=== PATIENT | male | born 1925 | race Caucasian/White ===

== ENCOUNTER 2016-11-25 06:05 | Inpatient (IN) ==
--- NOTE | 2016-11-25 06:21 | Emergency Department Report ---
Weakness HPI - General Chief complaint: Medical Emergency Stated complaint: Weakness/SOB Time Seen by Provider: 11/25/16 06:21 Source: patient, EMS Mode of arrival: EMS Limitations: no limitations - History of Present Illness HPI Narrative: Patient is a 89-year-old male presents to the ER for evaluation of weakness. 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 Patient woke up this morning too weak to get out of bed, did urinate in bed because he was unable to get up. Patient was seen by primary medical physician 3 days ago started on Bactrim for cellulitis of his right lower extremity, also started on Lasix with potassium. Patient does not normally use oxygen was found to be satting 88% on room air, was placed on 3 L by nasal cannula brought to the ER for evaluation on arrival patient is alert and oriented sinus tach MD Complaint: generalized weakness Onset (ago): day(s) Duration: constant - Related Data Home Medications Medication Instructions Recorded Confirmed Nitroglycerin 0.4 mg SL PRN #0 10/13/09 11/25/16 Aspirin 325 mg PO DAILY #0 10/14/09 11/25/16 Clopidogrel Bisulfate [Plavix] 75 mg PO DAILY #0 10/14/09 11/25/16 Omeprazole 20 mg PO ACB #0 cap 06/11/13 11/25/16 Famotidine 1 tab PO DAILY #0 tab 06/26/15 11/25/16 Mapap Regular Strength 325 mg See Label Instructions PO TID PRN 08/23/16 tablet tab cholecalciferol (vitamin D3) 2,000 2,000 unit PO DAILY cap 08/23/16 11/25/16 unit capsule clobetasol 0.05 % topical cream 1 applicatio TOP .COMPLEX 08/23/16 11/25/16 niacin 500 mg tablet 500 mg PO DAILY tab 08/23/16 11/25/16 omega-3 fatty acids 1,250 mg 1,250 mg PO DAILY cap 08/23/16 11/25/16 capsule simvastatin 80 mg tablet 40 mg PO HS #0 tab 08/23/16 11/25/16 vitamins A,C,T-abep-zxqoow 14,320 1 cap PO DAILY cap 08/23/16 11/25/16 unit-226 mg-200 unit capsule Furosemide [Lasix] 20 mg PO DAILY 11/25/16 11/25/16 Previous Rx's Medication Instructions Recorded Tamsulosin HCl 0.4 mg PO HS 30 Days #0 cap 07/02/15 clotrimazole-betamethasone 1 1 applicatio TOP BID #15 g 11/23/16 %-0.05 % topical cream potassium chloride ER 10 mEq 10 meq PO BID #60 tab 11/23/16 tablet,extended release sulfamethoxazole 800 1 tab PO BID #14 tab 11/23/16 mg-trimethoprim 160 mg tablet Allergies Allergy/AdvReac Type Severity Reaction Status Date / Time adhesive tape Allergy Intermediate BLISTERING, Verified 11/25/16 07:07 RASH cephalexin [From Keflex] Allergy Intermediate puritic Verified 11/25/16 07:07 rash Penicillins Allergy Intermediate RASH Verified 11/25/16 07:07 spironolactone Allergy Intermediate MEMORY Verified 11/25/16 07:07 IMPAIRMENT, FEELS CRAZY ciprofloxacin AdvReac Severe NAUSEA & Verified 11/25/16 07:07 VOMITING ibuprofen AdvReac Severe ULCER Verified 11/25/16 07:07 Review of Systems Constitutional: Reports: weakness (generalized nonspecific). Denies: fever, chills ENT: Denies: throat pain, dental pain Cardiovascular: Denies: chest pain, palpitations Respiratory: Reports: cough, dyspnea, wheezes Gastrointestinal: Denies: abdominal pain, nausea, vomiting Genitourinary: Denies: urgency, dysuria, frequency Musculoskeletal: Reports: as per HPI. Denies: back pain, joint swelling Neurological: Denies: headache, numbness, paresthesias Psychiatric: Denies: anxiety Endocrine: Reports: fatigue PFSH Patient Stated Medical History Macular Degeneration Yes Coronary Artery Disease Yes Hypertension Yes Myocardial Infarction Yes: STENT PLACEMENT Chronic Obstructive Pulmonary Yes Disease (COPD) Other Yes: URETHRAL STENOSIS [facility] Medical History Hx of malignant neoplasm of prostate (Acute Medical) 2004 Hx of myocardial infarction (Acute Medical) CAD (coronary artery disease) (Chronic Medical) COPD (chronic obstructive pulmonary disease) (Chronic Medical) Dyslipidemia (Chronic Medical) HTN (hypertension) (Chronic Medical) Macular degeneration (Chronic Medical) Urethral stenosis (Chronic Medical) Family History: Family History Father , at age 77 Myocardial infarction Mother , at age 49 MVA (motor vehicle accident) Sister , at age 83 Lung cancer - Social History Smoking status: Former smoker Substance use type: does not use Alcohol intake frequency: does not drink Physical Exam - Limitations Limitations: no limitations - General General appearance: alert - ENT ENT exam: Present: normal exam, normal oropharynx, mucous membranes dry - Neck Neck exam: Present: full ROM - Chest Chest inspection: Present: symmetric chest wall rise. Absent: tenderness - Respiratory Respiratory exam: Present: normal lung sounds bilaterally, wheezes. Absent: respiratory distress, stridor - Cardiovascular Cardiovascular exam: Present: regular rate, tachycardia, normal heart sounds - Abdominal Exam Abdominal exam: Present: soft. Absent: distention, tenderness - Extremities Exam Extremities exam: Present: other (patient has swelling with redness of the right lower extremity) - Back Exam Back exam: Present: full ROM. Absent: tenderness, CVA tenderness (R), CVA tenderness (L) - Skin Skin exam: Present: warm, dry, intact - Neurological Exam Neurological exam: Present: alert, oriented X3 - Psychiatric Psychiatric exam: Present: normal affect, normal mood Course Vital Signs Temperature 98.5 F 11/25/16 06:05 Pulse Rate 115 H 11/25/16 06:05 Respiratory Rate 24 11/25/16 06:05 Pulse Oximetry 90 11/25/16 06:05 Temperature 98.5 F 11/25/16 06:05 Pulse Rate 98 11/25/16 08:15 Respiratory Rate 28 H 11/25/16 08:15 Blood Pressure 109/55 11/25/16 08:04 Pulse Oximetry 93 11/25/16 08:15 Weakness - MDM Narrative Medical decision making narrative: Patient with elevated white count, elevated lactate, neutrophilia signs of urinary tract infection and signs of cellulitis. Patient blood pressure did drop to 89/54, fluids started, patient was started on Linezolid for antibiotic coverage due to patient's ALLERGY list. Discussed with Dr. Felipe, will admit to the CCU for further evaluation and treatment - Differential Diagnosis Differential diagnosis: Likely: acute myocardial infarction, anemia, hypoglycemia, sepsis, dehydration - Medical Records Attestation: I reviewed the patient's medical records. - Lab Data Attestation: I reviewed the patient's lab results. Result diagrams: 11/25/16 07:05 11/25/16 07:05 Lab Results 11/25/16 11/25/16 11/25/16 Range/Units 07:05 07:05 07:06 WBC 14.2 H (4.5-11.0) T/MM3 RBC 4.39 L (4.50-5.90) M/MM3 Hgb 12.2 L (13.5-17.5) GM/DL Hct 37.9 L (41-53) % MCV 86.3 (80-100) UM3 MCH 27.8 (26-34) UUG MCHC 32.2 (31-37) GM/DL RDW Std Deviation 49.6 (36.9-50.2) FL Plt Count 242 (130-400) T/MM3 MPV 10.0 (9.4-12.4) UM3 Immature Gran % (Auto) Not performed Neut % (Auto) Not performed Lymph % (Auto) Not performed [place] % (Auto) Not performed Eos % (Auto) Not performed Baso % (Auto) Not performed Neut # Not performed Lymph # Not performed [place] # Not performed Eos # Not performed Baso # Not performed Abs Immat Gran (auto) Not performed Neutrophils % (Manual) 98.0 H (33-66) % Band Neutrophils % 1.0 (0-6) % Lymphocytes % (Manual) 1.0 L (23-45) % Neutrophils # (Manual) 13.9 H (1.8-7.7) T/MM3 Band Neutrophils # 0.1 T/MM3 Lymphocytes # (Manual) 0.1 L (1-4.8) T/MM3 RBC Morph Comment Normal Turbidity < 20 (0-20) Sodium 141 (134-144) MEQ/L Potassium 4.1 (3.6-5) MEQ/L Chloride 106 (98-107) MEQ/L Carbon Dioxide 25 (22-30) MEQ/L Anion Gap 10 (5-15) MEQ/L BUN 36.0 H (9-20) MG/DL Creatinine 1.6 H (0.8-1.5) MG/DL GFR Calculation 41 BUN/Creatinine Ratio 23 (6-26) RATIO Glucose 106 (75-110) MG/DL Calculated Osmolality 279 (261-280) MOSM/KG Calcium 9.0 (8.4-10.2) MG/DL Magnesium 1.8 (1.6-2.3) MG/DL Total Bilirubin 0.70 (0.20-1.30) MG/DL Icterus Index < 2 (0-7) AST 28 (17-59) U/L ALT 27 (21-72) U/L Alkaline Phosphatase 72 (38-126) U/L Troponin I 0.059 (0-0.12) ng/ml B-Natriuretic Peptide 2690 H (0-175) pg/mL Total Protein 7.1 (6.3-8.2) G/DL Albumin 3.9 (3.5-5.0) G/DL Globulin 3.2 (2.4-3.6) G/DL Albumin/Globulin Ratio 1.2 (1.1-2.2) RATIO Plasma Lactate 2.3 H (0.6-2.2) MMOL/L Procalcitonin 3.33 H* NG/ML Specimen Hemolysis < 15 (0-25) Ur Collection Type Urine Color (YELLOW) Urine Clarity Urine pH (5.0-8.0) Ur Specific [place] (1.015-1.025) Urine Protein (NEGATIVE) Urine Glucose (UA) (NEGATIVE) Urine Ketones (NEGATIVE) Urine Occult Blood (NEGATIVE) Urine Nitrate (NEGATIVE) Urine Bilirubin (NEGATIVE) Urine Urobilinogen (NORMAL) EU/DL Ur Leukocyte Esterase (NEGATIVE) Urine RBC (0-3) /HPF Urine WBC (0-5) /HPF Ur Squamous Epith Cells Urine Bacteria (NEGATIVE) Urine Mucus Ur Culture Indicated? 11/25/16 Range/Units 08:02 WBC (4.5-11.0) T/MM3 RBC (4.50-5.90) M/MM3 Hgb (13.5-17.5) GM/DL Hct (41-53) % MCV (80-100) UM3 MCH (26-34) UUG MCHC (31-37) GM/DL RDW Std Deviation (36.9-50.2) FL Plt Count (130-400) T/MM3 MPV (9.4-12.4) UM3 Immature Gran % (Auto) Neut % (Auto) Lymph % (Auto) [place] % (Auto) Eos % (Auto) Baso % (Auto) Neut # Lymph # [place] # Eos # Baso # Abs Immat Gran (auto) Neutrophils % (Manual) (33-66) % Band Neutrophils % (0-6) % Lymphocytes % (Manual) (23-45) % Neutrophils # (Manual) (1.8-7.7) T/MM3 Band Neutrophils # T/MM3 Lymphocytes # (Manual) (1-4.8) T/MM3 RBC Morph Comment Turbidity (0-20) Sodium (134-144) MEQ/L Potassium (3.6-5) MEQ/L Chloride (98-107) MEQ/L Carbon Dioxide (22-30) MEQ/L Anion Gap (5-15) MEQ/L BUN (9-20) MG/DL Creatinine (0.8-1.5) MG/DL GFR Calculation BUN/Creatinine Ratio (6-26) RATIO Glucose (75-110) MG/DL Calculated Osmolality (261-280) MOSM/KG Calcium (8.4-10.2) MG/DL Magnesium (1.6-2.3) MG/DL Total Bilirubin (0.20-1.30) MG/DL Icterus Index (0-7) AST (17-59) U/L ALT (21-72) U/L Alkaline Phosphatase (38-126) U/L Troponin I (0-0.12) ng/ml B-Natriuretic Peptide (0-175) pg/mL Total Protein (6.3-8.2) G/DL Albumin (3.5-5.0) G/DL Globulin (2.4-3.6) G/DL Albumin/Globulin Ratio (1.1-2.2) RATIO Plasma Lactate (0.6-2.2) MMOL/L Procalcitonin NG/ML Specimen Hemolysis (0-25) Ur Collection Type Urine, clean catch Urine Color Yellow (YELLOW) Urine Clarity Cloudy Urine pH 5.0 (5.0-8.0) Ur Specific [place] >=1.030 H (1.015-1.025) Urine Protein Trace A (NEGATIVE) Urine Glucose (UA) Negative (NEGATIVE) Urine Ketones Negative (NEGATIVE) Urine Occult Blood Trace-intact (NEGATIVE) Urine Nitrate Negative (NEGATIVE) Urine Bilirubin Negative (NEGATIVE) Urine Urobilinogen 0.2 (NORMAL) EU/DL Ur Leukocyte Esterase 1+ A (NEGATIVE) Urine RBC 1-3 (0-3) /HPF Urine WBC 50-200 H (0-5) /HPF Ur Squamous Epith Cells 5-10 Urine Bacteria 2+ H (NEGATIVE) Urine Mucus Present Ur Culture Indicated? Cult reflexed &setup - Radiology Data Attestation: I reviewed the patient's radiology results. Chest x-ray: No acute cardiopulmonary findings Ultrasound right lower extremity: No sign of DVT - EKG Data EKG #1 EKG attestation: Yes: I reviewed and interpreted this EKG. EKG shows normal: sinus rhythm Rate: normal Rhythm: NSR [place]/QRS: normal Ectopy: PVC Interpretation: no acute changes Disposition Clinical Impression: Sepsis Qualifiers: Sepsis type: sepsis due to unspecified organism Qualified Code(s): A41.9 - Sepsis, unspecified organism Cellulitis Qualifiers: Site of cellulitis: extremity Site of cellulitis of extremity: lower extremity Laterality: right Qualified Code(s): L03.115 - Cellulitis of right lower limb UTI (urinary tract infection) Qualifiers: Urinary tract infection type: acute cystitis Hematuria presence: without hematuria Qualified Code(s): N30.00 - Acute cystitis without hematuria Disposition: 02 To [facility] [place] Acute Care Condition: Stable Prescriptions: No Action Aspirin 325 mg PO DAILY #0 Tamsulosin HCl 0.4 mg PO HS 30 Days #0 cap Nitroglycerin 0.4 mg SL PRN #0 Clopidogrel Bisulfate [Plavix] 75 mg PO DAILY #0 Omeprazole 20 mg PO ACB #0 cap Famotidine 1 tab PO DAILY #0 tab Furosemide [Lasix] 20 mg PO DAILY sulfamethoxazole 800 mg-trimethoprim 160 mg tablet 1 tab PO BID #14 tab potassium chloride ER 10 mEq tablet,extended release 10 meq PO BID #60 tab clotrimazole-betamethasone 1 %-0.05 % topical cream 1 applicatio TOP BID #15 g - Seen By: physician
[2016-11-25] MEDS ORDERED: ALBUTEROL 2.5mg/3ml (0.083%) NEB AEROSOL ONE (06:25)
[2016-11-25] MEDS ORDERED: LINEZOLID PREMIX 600 MG/300 ML BAG IV SCH (06:45)
--- OUTSIDE RECORDS SUMMARY | 2016-11-25 07:08 | External Medical Summary | Summary of Care ---
:1925 Author Name Jeff Holcomb M.D. 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 Refills: 0 Started 03-Apr-2015 ActiveTylenol 325 MG Oral Tablet TAKE 1 TO 2 TABLETS EVERY 4 HOURS NEEDED Refills: 0 Started 03-Apr-2015 ActiveVitamin D3 2000 UNIT Oral Tablet Take 1 tablet daily Refills: 0 Started 03-Apr-2015 ActiveTemovate 0.05 % External Cream APPLY SPARINGLY TO AFFECTED AREA(S) 3 TIMES A DAY Refills: 0 Started 03-Apr-2015 ActiveSimvastatin 80 MG Oral Tablet TAKE 1 TABLET DAILY AT BEDTIME. Refills: 0 Started 03-Apr-2015 ActivePlavix 75 MG Oral Tablet TAKE 1 TABLET DAILY. Refills: 0 Started 03-Apr-2015 ActiveNitrostat 0.4 MG Sublingual Tablet Sublingual DISSOLVE 1 TABLET UNDER THE TONGUE NEEDED FOR CHEST PAIN. Refills: 0 Started 03-Apr-2015 ActivePepcid 20 MG Oral Tablet TAKE 1 TABLET DAILY AT BEDTIME. Refills: 0 Started 03-Apr-2015 ActiveFish Oil 1000 MG Oral Capsule TAKE 1 CAPSULE DAILY. Refills: 0 Started 03-Apr-2015 ActiveAspirin 81 MG Oral Tablet TAKE 1 TABLET DAILY. Refills: 0 Started 03-Apr-2015 ActiveNiacin 250 MG Oral Tablet TAKE 1 TABLET DAILY DIRECTED. Refills: 0 Started 03-Apr-2015 Active Allergies and Adverse Reactions Name Dates Details Keflex Status: Active Penicillins Status: Active Past Medical History Name Dates Details History of bladder cancer (V10.51, Z85.51) Status: Resolved History of CAD (coronary artery disease) (414.00, I25.10) Status: Resolved History of Dyslipidemia (272.4, E78.5) Status: Resolved History of esophageal reflux (V12.79, Z87.19) Status: Resolved History of hypertension (V12.59, Z86.79) Status: Resolved History of malignant neoplasm of bladder (V10.51, Z85.51) Status: Resolved History of malignant neoplasm of prostate (V10.46, Z85.46) Status: Resolved History of myocardial infarction (412, I25.2) Status: Resolved History of Postoperative urethral stricture (598.2) Status: Resolved History of Pyuria (791.9, N39.0) Status: Resolved Procedures Procedure Dates Details History of Tonsillectomy History of Ankle Surgery History of Cath Placement Of Stent 1 History Of Prior Surgery Procedures not documented Immunization Name Dates Details Immunizations not documented Family History natural son Name Dates Details Family history of diabetes mellitus (V18.0, Z83.3) Status: Active Father Name Dates Details Family history of myocardial infarction (V17.3, Z82.49) Status: Active Sister Name Dates Details Family history of lung cancer (V16.1, Z80.1) Status: Active Social History Name Dates Details Smoking StatusFormer smoker Vital Signs Date Test Result Details 26-Jun-2015 14:19 Height 71 in Status: Weight 212 lb Status: Body Mass Index Calculated 29.57 kg/m2 Status: Body Surface Area Calculated 2.16 m2 Status: 26-Jun-2015 14:17 BP Systolic 107 mm[Hg] Status: BP Diastolic 79 mm[Hg] Status: Heart Rate 83 /min Status: Results Date Description Value Details Results not documented Plan of Care Planned Observations Name Dates Details Planned Goals not documented Goal Planned Encounters Appointment; Provider: Jeff Holcomb On 02-Jul-2016 10:15 Appointment; Provider: Jeff Holcomb On 09:00 Appointment; Provider: Jeff Holcomb On 01-Jul-2015 12:00 Instructions Instructions not documented Encounters Appointment; Jeff Holcomb On 26-Jun-2015 Encounter Diagnosis: Problem not documented 11:15
--- OUTSIDE RECORDS SUMMARY | 2016-11-25 07:08 | External Medical Summary | Summary of Care ---
:1925 Author Name Jeff Holcomb M.D. Address [address] [place] [address] [place] [address] Care Team Providers Name Role Phone Zhang Dale, Jeff Unavailable Unavailable Johnathan Andrews Unavailable Unavailable Unavailable Unavailable Functional Status Functional Status Health Issues Name Dates Details Functional status health issues are not documented Status: Cognitive Status Health Issues Name Dates Details Cognitive status health issues are not documented Status: Problems Name Dates Details Hematuria (599.70, R31.9) Status: Active Encounter for radiotherapy (V58.0, Z51.0) Status: Active Gross hematuria (599.71, R31.0) Status: Active 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 Refills: 0 Start 03-Apr-2015 Active Tylenol 325 MG Oral Tablet TAKE 1 TO 2 TABLETS EVERY 4 HOURS NEEDED Refills: 0 Start 03-Apr-2015 Active Vitamin D3 2000 UNIT Oral Tablet Take 1 tablet daily Refills: 0 Start 03-Apr-2015 Active Temovate 0.05 % External Cream APPLY SPARINGLY TO AFFECTED AREA(S) 3 TIMES A DAY Refills: 0 Start 03-Apr-2015 Active Simvastatin 80 MG Oral Tablet TAKE 1 TABLET DAILY AT BEDTIME. Refills: 0 Start 03-Apr-2015 Active Plavix 75 MG Oral Tablet TAKE 1 TABLET DAILY. Refills: 0 Start 03-Apr-2015 Active Nitrostat 0.4 MG Sublingual Tablet Sublingual DISSOLVE 1 TABLET UNDER THE TONGUE NEEDED FOR CHEST PAIN. Refills: 0 Start 03-Apr-2015 Active Pepcid 20 MG Oral Tablet TAKE 1 TABLET DAILY AT BEDTIME. Refills: 0 Start 03-Apr-2015 Active Fish Oil 1000 MG Oral Capsule TAKE 1 CAPSULE DAILY. Refills: 0 Start 03-Apr-2015 Active Aspirin 81 MG TABS TAKE 1 TABLET DAILY. Refills: 0 Start 03-Apr-2015 Active Niacin 250 MG Oral Tablet TAKE 1 TABLET DAILY DIRECTED. Refills: 0 Start 03-Apr-2015 Active Clotrimazole-Betamethasone 1-0.05 % External Cream APPLY SPARINGLY TO THE AFFECTED AREA(S) TWICE DAILY. Quantity: 1 Refills: 0 Zhang M.D., Jeff Start 30-Jun-2016 Active 15 GM Tube Allergies and Adverse Reactions Name Dates Details Keflex (Allergy) Status: Active Penicillins (Allergy) Status: Active Past Medical History Name Dates [...] Of Stent 1 History Of Prior Surgery CYTOLOGY - URINE [id number] Ordered: 30-Jun-2016 URINE CULTURE [id number] Ordered: 30-Jun-2016 Immunization Name Dates Details Immunizations not documented Family History natural son Name Dates Details Family history of diabetes mellitus (V18.0, Z83.3) Status: Active Father Name Dates Details Family history of myocardial infarction (V17.3, Z82.49) Status: Active Sister Name Dates Details Family history of lung cancer (V16.1, Z80.1) Status: Active Social History Name Dates Details - Status: Smoking Status Name Dates Details Former smoker Vital Signs Date Test Result Details No Known Vitals to report Results Date Description Value Details Results not documented Plan of Care Name Dates Details Planned Observations Planned Goals not documented Planned Encounters Appointment; Provider: Jeff Holcomb M.D. On 06-Jul-2017 11:00 Appointment; Provider: Mathieu Levine M.D. On 06-Jul-2016 14:00 Interventions Provided Medication ChangesClotrimazole-Betamethasone 1-0.05 % External Cream - StartLabs /Procedures/ImagingCYTOLOGY - URINE [id number]; To be Done: 30 Jun 2016URINE CULTURE [id number]; To be Done: 30 Jun 2016 Instructions Name Dates Details Instructions not documented Encounters Appointment; Jeff Holcomb M.D. On 26-Jun-2015 Encounter Diagnosis: Problem not documented 11:15
--- OUTSIDE RECORDS SUMMARY | 2016-11-25 07:08 | External Medical Summary | Summary of Care ---
:1925 Author Name Jeff Holcomb M.D. 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 History of bladder cancer (V10.51, Z85.51) Status: Active History of prostate cancer (V10.46, Z85.46) Status: Active Medications Name Dates Details Omeprazole [...] cancer (V10.51, Z85.51) Status: Resolved History of Bladder cancer screening (V76.3, Z12.6) Status: Resolved History of CAD (coronary artery [...] Of Stent 1 History Of Prior Surgery URINE CULTURE [id number] Ordered:26-Jun-2015 Immunization Name Dates Details Immunizations not documented [...] Planned Encounters Appointment; Provider: Jeff Holcomb On 09:00 Instructions Instructions not documented Encounters Appointment; Jeff Holcomb On 26-Jun-2015 Encounter Diagnosis: Problem not documented 11:15
--- OUTSIDE RECORDS SUMMARY | 2016-11-25 07:08 | External Medical Summary | Summary of Care ---
:1925 Author Name Jeff Holcomb M.D. Address [address] [place] [address] [place] [address] Care Team Providers Name Role Phone Zhang [...] AREA(S) TWICE DAILY. Quantity: 1 Refills: 0 Cho M.D., Jeff Start 30-Jun-2016 Active 15 GM [...] 1 History Of Prior Surgery URINE CULTURE [id number] Ordered: 30-Jun-2016 Immunization Name Dates Details Immunizations [...] ChangesClotrimazole-Betamethasone 1-0.05 % External Cream - StartLabs /Procedures/ImagingURINE CULTURE [id number]; To be Done: 30 Jun 2016 Instructions Name Dates Details Instructions not documented Encounters Appointment; Jeff Holcomb M.D. On 26-Jun-2015 Encounter Diagnosis: Problem not documented 11:15
--- OUTSIDE RECORDS SUMMARY | 2016-11-25 07:08 | External Medical Summary | Summary of Care ---
:1925 Author Name Jeff Holcomb M.D. 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
--- OUTSIDE RECORDS SUMMARY | 2016-11-25 07:08 | External Medical Summary | Summary of Care ---
:1925 Author Name Jeff Holcomb M.D. 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 Quantity: 1 Refills: 0 Jeff Holcomb M.D. Start 30-Jun-2016 Active 15 GM Tube Allergies [...] to report Results Date Description Value Details 01-Jul-2016 07:51 CYTOLOGY - URINE [id number] CYTOLOGY Specimen referred to [facility]. Report to follow. 05-Jul-2016 11:13 URINE CULTURE [id number] Comments: [email or web address] performed at: [facility], [address] [place] [address], [address] [place] [address], [place] Clerk: Jeff Deluca D.O., MPHQuest Collection Date/Time: [id number] Results Received Date/Time: [id number] Reported Date /Time: [id number] FASTING:NOQuest performed at : [employer], [address] [place] [address], [address] [place] [address], [place] Clerk: Jeff Deluca D.O., MPHQuest Collection Date/Time: [id number] Results Received Date/Time: [id number] Reported Date/Time: [id number] 0 FASTING:NOQuest performed at: [facility], [address] [place] [address], [address] [place] [address], [place] Clerk: Jeff Deluca D.O., MPHQuest Collection Date/ Time: [id number] Results Received Date/Time: [id number] Reported Date/Time: [id number] FASTING:NO CULTURE, URINE, ROUTINE SEE NOTE (Abnormal) Comments: CULTURE, URINE, ROUTINE MICRO NUMBER: [id number] TEST STATUS: FINAL SPECIMEN SOURCE : URINE, CLEAN CATCH SPECIMEN QUALITY: ADEQUATE RESULT: 10,000- 50,000 CFU/mL of Pseudomo andi aeruginosa 10,000-50,000 CFU/mL of Staphylococcus aureus Ps.aeruginosa S.aureus INT CLEOPATRA INT CLEOPATRA CEFEPIME S 4 * CEFTAZIDIME S 4 * CIPROFLOXACIN S <=0.25 S <=0.5 GENTAMICIN S <=1 S <=0.5 IMIPENEM S 2 * LEVOFLOXACIN S 1 S <=0.12 MOXIFLOXACIN * S <=0.25 NITROFURANTOIN * S <=16 OXACILLIN * S <=0.25 1 PIP /TAZOBACTAM S 8 * TETRACY NESS * S <=1 TOBRAMYCIN S <=1 * TRIMETHOPRIM/SULFA * S <= 10 VANCOMYCIN * S <=0.5S=Susceptible I=Intermediate R=Resistant *=Not TestedNR= Not Reported NN=See Therapy CommentsTHERAPY COMMENTS Note 1: Oxacillin- susceptible staphylococci are susceptible to othe r penicillinase-stable penicillins (e.g. Methicillin, Nafcillin), beta - lactam/beta-lactamase inhibitor combinations, and cephems with staphylococcal indications, including Cefazolin.[KS]----- Plan of Care Name Dates Details Planned Observations Planned Goals not documented Planned Encounters Appointment; Provider: Jeff Holcomb M.D. On 06-Jul-2017 11:00 Appointment; Provider: Mathieu Levine M.D. On 30-Jul-2016 14:45 Appointment; Provider: Mathieu Levine M.D. On 21-Jul-2016 08:45 Appointment; Provider: Mathieu Levine M.D. On 20-Jul-2016 13:30 Appointment; Provider: Mathieu Levine M.D. On 13-Jul-2016 11:00 Instructions Name Dates Details Instructions not documented Encounters Appointment; Mathieu Levine M.D. On 06-Jul-2016 Encounter Diagnosis: Problem not documented 14:00 Appointment; Jeff Holcomb M.D. On 30-Jun-2016 Encounter Diagnosis: Problem not documented 11:00 Appointment; Jeff Holcomb M.D. On 26-Jun-2015 Encounter Diagnosis: Problem not documented 11:15
--- OUTSIDE RECORDS SUMMARY | 2016-11-25 07:08 | External Medical Summary | Summary of Care ---
:1925 Author Name Jeff Holcomb M.D. Address [address] [place] [address] [place] [address] Care Team Providers Name Role Phone Verify [...] 1 History Of Prior Surgery URINE CULTURE [id number] Ordered:26-Jun-2015 Immunization Name Dates Details Immunizations not [...] On 09:00 Appointment; Provider: Jeff Holcomb On 08-Jul-2015 08:30 Instructions Instructions not documented Encounters Appointment; Jeff Holcomb On 26-Jun-2015 Encounter Diagnosis: Problem not documented 11:15
--- OUTSIDE RECORDS SUMMARY | 2016-11-25 07:08 | External Medical Summary | Summary of Care ---
:1925 Author Name Jeff Holcomb M.D. Address [address] [place] [address] [place] [address] Care Team Providers Name Role Phone Verify [...] /min Status: Results Date Description Value Details 30-Jun-2015 10:24 URINE CULTURE [id number] Comments: Quest performed at: [facility], [address] [place], [address], Vice President Lending: Jeff Deluca D.O., MPHQuest Collection Date/Time: [id number] Results Received Date/Time: [id number] Reported Date/Time: [id number] performed at: [facility], [address] [place], [address], Vice President Lending: Jeff Deluca D.O., MPHQuest Collection Date/Time: [id number] Results Received Date/Time: [id number] Reported Date/Time: [id number] CULTURE, URINE, ROUTINE SEE NOTE Comments: CULTURE, URINE, ROUTINE MICRO NUMBER: [id number] TEST STATUS: FINAL SPECIMEN SOURCE: URINE , CLEAN CATCH SPECIMEN QUALITY: ADEQUATE RESULT: 10,000-50,000 CFU /mL of Staphylo (Abnormal) coccus aureus S.aureus INT CLEOPATRA CIPROFLOXACIN S <=0.5 GENTAMICIN S <=0 .5 LEVOFLOXACIN S <=0.12 MOXIFLOXACIN S <=0.25 NITROFURANTOIN S <=16 OXACILLIN S <=0.25 1 TETRACYCLINE S &l t;=1 TRIMETHOPRIM/SULFA S <=10 VANCOMYCIN S <=0.5S=Susceptible I=Intermediate R=Resistant *=Not TestedNR=Not Reported NN=See Therapy CommentsTHERAPY COMMENTS N ote 1: Oxacillin-susceptible staphylococci are susceptible to other penicillinase-stable penicillins (e.g. Methicillin, Nafcillin), beta- lactam/beta-lactamase inhibitor combinations, and cephems with staphylococcal indications, including Cefazolin.[KS]---- - Plan of Care Planned Observations Name Dates Details Planned Goals not documented Goal Planned Encounters Appointment; Provider: Jeff Holcomb On 02-Jul-2016 10:15 Appointment; Provider: Jeff Holcomb On 09:00 Appointment; Provider: Jeff Holcomb On 01-Jul-2015 12:00 Instructions Instructions not documented Encounters Appointment; Jeff Holcomb On 26-Jun-2015 Encounter Diagnosis: Problem not documented 11:15
--- OUTSIDE RECORDS SUMMARY | 2016-11-25 07:08 | External Medical Summary | Summary of Care ---
:1925 Author Name Jeff Holcomb M.D. 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
[2016-11-25] MEDS ORDERED: NS 1,000 ML IV ONE ×2 (07:47→11:07)
[2016-11-25] MEDS: SALINE FLUSH 10ml SYRINGE IVF PRN (07:50)
--- NOTE | 2016-11-25 07:56 | XRay Report ---
INDICATION: shortness of air oxygen dependent, wheezing PROCEDURE: CHEST 2-VIEWS UPRIGHT (PA & LAT) Encounter: Initial COMPARISON: June 29, 2015 Findings: The lungs are stable in appearance without new focal airspace consolidation. There is no pleural effusion or pneumothorax. Chronic scarring in the left base. The heart size, pulmonary vascularity and mediastinal contours are unchanged. IMPRESSION: Stable appearance of the chest without acute cardiopulmonary disease. .
--- NOTE | 2016-11-25 07:57 | Ultrasound Report ---
Indication: right lower extremity swelling PROCEDURE: US venous doppler LE RT: Encounter: Initial Comparison: None Technique: Color Doppler duplex and grayscale sonographic imaging of the right lower extremity was performed. Findings: There is no evidence for acute deep venous thrombosis in the right thigh. Specifically, serial graded compression was performed from the inguinal ligament to the popliteal bifurcation, on the right thigh, demonstrating appropriate compressibility of the deep venous system. In addition, color and pulsed Doppler demonstrate appropriate spontaneous flow, variation with respiration, and augmentation with calf compression. At the ankle, normal flow is identified in the posterior tibial veins; these vessels are also normal in caliber. Impression: No evidence of acute DVT in the right lower limb. There is a preliminary report by [facility]. .
--- NOTE | 2016-11-25 10:04 | History & Physical Report ---
<Kiersten Da Silva - Last Filed: 11/25/16 11:05> History of Present Illness Date: 11/25/16 Chief complaint: Weakness HPI: Castro Joel (Bob) is an 89 year old male who started feeling weak on . He was still able to do his daily activities and drive his tractor, but later his weakness became worse and that evening he started to have chills and rigors and needed to cover up with a heavy blanket. He didn't check his temperature. He wasn't sweating. He felt short of breath. No chest pain or pressure. He felt a little dizzy and lightheaded. He tends to get allergies this time of year, but they haven't been too bad yet. He denies cough or congestion/drainage. His voice is hoarse but he denies pain or dysphagia. No paresthesias, no mental status changes. He saw Dr. Andrews on 11/23/16 for bleeding and redness in between his right 4th and 5th toes, and Dr. Andrews Rx Bactrim DS 1 PO BID x [address] Andrews also Rx Lasix 20 mg BID and KCl 10 mEq BID for increased b/l lower extremity edema. Doyle states he started Bactrim on 11/24/16 but has had some nausea since then. He also reports urinary frequency. He occasionally has dysuria but none recently. He's prone to UTIs ( straight caths BID but didn't get any urine output last night). No abdominal pain, constipation, or diarrhea. His appetite hasn't been as hearty since he started his new medications. When he woke up in the morning of 11/25/16, he tried to get out of bed but his legs wouldn't hold him up. He called 911 and was transported [place] [facility] There, initial vitals were stable but he soon desaturated to 85% on room air. He was tachypneic and tachycardic and blood pressures were low to low-normal (at one point MAP was 58 mm Hg). He received a 1L fluid bolus. Labs showed an elevated lactate of 2.3, elevated procalcitonin of 3.3, leukocytosis with WBC of 14.2. Renal function was compromised with BUN of 36 and creatinine of 1.6 (baseline 1.1). UA showed UTI. He has multiple allergies and was given linezolid in the ED. Blood cultures were drawn and sent prior to antibiotics. He was subsequently admitted to the CCU under the hospitalist service for severe sepsis secondary to UTI, acute hypoxia, ANNALISA. LOS is expected to exceed 2 overnights. Review of Systems Comprehensive ROS: completed and no additional positive findings except those as stated - Constitutional Constitutional: Present: as per HPI - EENMT Eyes: Absent: change in vision Nose: Present: as per HPI Mouth/Throat: Present: as per HPI - Cardiovascular Cardiovascular: Present: edema. Absent: chest pain - Respiratory Respiratory: Present: dyspnea. Absent: cough - Gastrointestinal Gastrointestinal: Present: nausea. Absent: abdominal pain, constipation, diarrhea, vomiting - Genitourinary Genitourinary: Present: difficulty urinating (straight caths BID), urinary frequency (since starting Lasix) - Integumentary/Breasts Integumentary: Present: wounds (right foot) - Neurological Neurological: Present: as per HPI, weakness. Absent: abnormal gait, confusion - Psychiatric Psychiatric: Absent: depression - Hematologic/Lymphatic Hematologic/Lymphatic: Absent: easy bleeding, easy bruising - Allergic/Immunologic Allergic/Immunologic: Present: seasonal rhinorrhea PFSH Hx of malignant neoplasm of prostate 2004 - radiation CAD (coronary artery disease) + History of [place] COPD (chronic obstructive pulmonary disease) Dyslipidemia HTN (hypertension) Macular degeneration Urethral stenosis, frequent UTI, straight catheterizes BID Surgical History: Cardiac stents x6. Left ankle ORIF, approx. 30 years ago. Tonsillectomy when he was a child Family History: Family History Father , at age 77 Myocardial infarction Mother , at age 49 MVA (motor vehicle accident) Sister , at age 83 Lung cancer 3 other sisters - 2 have Alzheimer's; his oldest sister is 97 years old and she' s doing "alright" - Social History Smoking status: Former smoker (quit 30 years ago) packs per day: 1 Packs-years: 50 Substance use type: does not use Alcohol intake frequency: a few times a week (he drinks 1-2 beers most days of the week) Housing: house Current occupational status: employed ([employer]) Social history: PCP: Dr. Andrews CV: Dr. Fontenot Uro: Dr. Holcomb Eyes: Dr. Varenhorst Medications Home Medications Medication Instructions Recorded Confirmed Type Nitroglycerin 0.4 mg SL PRN #0 10/13/09 11/25/16 History Aspirin 325 mg PO DAILY #0 10/14/09 11/25/16 History Clopidogrel Bisulfate [Plavix] 75 mg PO DAILY #0 10/14/09 11/25/16 History Omeprazole 20 mg PO ACB #0 cap 06/11/13 11/25/16 History Famotidine 1 tab PO DAILY #0 tab 06/26/15 11/25/16 History Mapap Regular Strength 325 mg See Label Instructions PO TID PRN 08/23/16 History tablet tab cholecalciferol (vitamin D3) 2,000 2,000 unit PO DAILY cap 08/23/16 11/25/16 History unit capsule clobetasol 0.05 % topical cream 1 applicatio TOP .COMPLEX 08/23/16 11/25/16 History niacin 500 mg tablet 500 mg PO DAILY tab 08/23/16 11/25/16 History omega-3 fatty acids 1,250 mg 1,250 mg PO DAILY cap 08/23/16 11/25/16 History capsule simvastatin 80 mg tablet 40 mg PO HS #0 tab 08/23/16 11/25/16 History vitamins A,C,Y-ovgq-zwlbff 14,320 1 cap PO DAILY cap 08/23/16 11/25/16 History unit-226 mg-200 unit capsule Furosemide [Lasix] 20 mg PO DAILY 11/25/16 11/25/16 History Allergies Allergy/AdvReac Type Severity Reaction Status Date / Time adhesive tape Allergy Intermediate BLISTERING, Verified 11/25/16 07:07 RASH cephalexin [From Keflex] Allergy Intermediate puritic Verified 11/25/16 07:07 rash Penicillins Allergy Intermediate RASH Verified 11/25/16 07:07 spironolactone Allergy Intermediate MEMORY Verified 11/25/16 07:07 IMPAIRMENT, FEELS CRAZY ciprofloxacin AdvReac Severe NAUSEA & Verified 11/25/16 07:07 VOMITING ibuprofen AdvReac Severe ULCER Verified 11/25/16 07:07 Exam Vital Signs: Temperature 98.5 F 11/25/16 06:05 Pulse Rate 98 11/25/16 09:54 Respiratory Rate 28 H 11/25/16 09:54 Blood Pressure 109/55 11/25/16 08:04 Pulse Oximetry 93 11/25/16 09:54 Telemetry Rhythm: Sinus Tachycardia Height/Weight/BMI: Height 1.8 m Weight 96.6 kg Body Mass Index 29.7 - Constitutional Present: mild distress, well nourished, well developed, thin - Routine HEENT Exam Head: Present: normocephalic Eye: Present: PERRL. Absent: conjunctival icterus, scleral injection ENT: Present: mucous membranes dry, oropharynx clear. Absent: dentition normal (edentulous with dentures in place) - Routine Neck Exam Present: supple, lymphadenopathy (mild). Absent: tenderness - Routine Respiratory Exam Present: decreased breath sounds - Routine Cardiovascular Exam Present: RRR, S1, S2, tachycardia Comments: distant heart tones - Routine Abdominal Exam Present: soft, normoactive bowel sounds, non distended, non tender - Routine Extremities Exam Present: cyanosis (bilateral plantar surfaces overlying pads of toes and metatarsal heads ), edema (bilateral, R>L), pulses intact. Absent: calf tenderness - Routine Skin Exam Present: intact, dry, warm, wounds (healing wound to web space and dorsal aspect between right 4th and 5th toes. No erythema, drainage, swelling.) - Routine Neurological Exam Present: alert, oriented X3, CN II-XII intact, moving all extremities, normal speech - Routine Psychiatric Exam Present: normal affect, normal thought process, cooperative Results - Labs CBC & Chem 7: 11/25/16 07:05 11/25/16 07:05 - ECG Data Tracing #1 Sinus tachycardia with occasional PVC No ST elevation or depression Narrow complex QRS Normal axis - Imaging and Cardiology Chest x-ray Status: image reviewed by me (no evidence of failure or infiltrates) Assessment and Plan (1) UTI (urinary tract infection) Current visit: Yes Status: Acute (2) Severe sepsis Current visit: Yes Status: Acute DVT Prophylaxis: Lovenox GI Prophylaxis: Protonix, Pepcid Resuscitation Status: Full Code Assessment and Plan: ASSESSMENT Severe Sepsis (lactate 2.3, hypoxia, ANNALISA, hypotension) secondary to UTI Acute hypoxic respiratory failure with oxygen saturation of 85% on room air ANNALISA with creatinine of 1.6, baseline 1.1 Normocytic anemia Wound to right foot (POA) - improving Urethral stenosis, frequent UTI, straight catheterizes BID Hx of malignant neoplasm of prostate 2004 - radiation CAD (coronary artery disease) + History of [place] COPD (chronic obstructive pulmonary disease) Dyslipidemia HTN (hypertension) Macular degeneration PLAN Admit, inpatient status, to CCU under the hospitalist service. Severe sepsis secondary to UTI -Linezolid was given in the Ed. Will start Levaquin (reaction to cipro is nausea/vomiting) -multiple allergies reviewed: PCN causes an itchy rash and facial swelling -Organ dysfunction: ANNALISA, hypoxia, hypotension -IVF: received 1L fluid bolus in ED; will start bolus of 250 ml/hr due to persistent low BP's and tachycardia -if repeat lactate is 4 or greater (indicating shock) we will give the full fluid bolus of 2900 mL -if repeat lactate is 4 or greater we will reassess him within 6 hours and trend lactate levels -Called [facility] in [place]: BUN/creatinine was 28/1.13 in July and 25/ 1.17 in June. -Place [facility] due to self-catheterization history and to monitor I/Os -Supplemental oxygen; DuoNeb PRN; incentive spirometry. 50 pack year smoking hx and underlying COPD. -Consider PE workup if respiratory status doesn't improve. Venous doppler of right leg was negative for DVT. -SIRS criteria = fever, leukocytosis, tachycardia, tachypnea -SOFA score = 2 (1 point for MAP <70 and 1 point for Cr 1.6) Advanced directives -lists all 3 children as DPOA's -Reported DNR in ED but pt reports that he wants resuscitation (just doesn't want to be kept on a ventilator) - will need to clarify. -Does have a living will -[facility] does not have a DNR on file; code status has not been listed Continue home meds except for Lasix, KCl, Bactrim. He has an H2 quirino and PPI listed (reported hx of ulcer from ibuprofen). Lovenox for VTE prophylaxis. Discussed with RN, Dr. Felipe, and staff at [facility]. Outpatient records reviewed. Critical Care time: 35 minutes. Hospital Course Summary Disclaimer: The visit summary below is not to be considered part of the above Progress Note. 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 Severe sepsis secondary to UTI -Linezolid was given in the Ed. Will start Levaquin (reaction to cipro is nausea/vomiting) -multiple allergies reviewed: PCN causes an itchy rash and facial swelling -Organ dysfunction: ANNALISA, hypoxia, hypotension -IVF: received 1L fluid bolus in ED; will start bolus of 250 ml/hr -if repeat lactate is 4 or greater (indicating shock) we will give the full fluid bolus of 2900 mL -if repeat lactate is 4 or greater we will reassess him within 6 hours and trend lactate levels -Called [facility] in [place]: BUN/creatinine was 28/1.13 in July and 25/ 1.17 in June. -Place [facility] due to self-catheterization history and to monitor I/Os -Supplemental oxygen; DuoNeb PRN; incentive spirometry. 50 pack year smoking hx and underlying COPD. -Consider PE workup if respiratory status doesn't improve. Venous doppler of right leg was negative for DVT. -SIRS criteria = fever, leukocytosis, tachycardia, tachypnea -SOFA score = 2 (1 point for MAP <70 and 1 point for Cr 1.6) Advanced directives -lists all 3 children as DPOA's -Reported DNR in ED but pt reports that he wants resuscitation (just doesn't want to be kept on a ventilator) - will need to clarify. -Does have a living will -[facility] does not have a DNR on file; code status has not been listed Continue home meds except for Lasix, KCl, Bactrim. He has an H2 quirino and PPI listed (reported hx of ulcer from ibuprofen). Lovenox for VTE prophylaxis. Discussed with RN, Dr. Felipe, and staff at [facility]. Outpatient records reviewed. <Humera Felipe - Last Filed: 11/25/16 20:57> History of Present Illness Date: 11/25/16 PFSH Patient Stated Medical History Macular Degeneration Yes Coronary Artery Disease Yes Hypertension Yes Myocardial Infarction Yes: STENT PLACEMENT x6 Chronic Obstructive Pulmonary Yes Disease (COPD) Other Yes: [facility] Medical History Hx of malignant neoplasm of prostate (Acute Medical) 2004 Hx of myocardial infarction (Acute Medical) CAD (coronary artery disease) (Chronic Medical) COPD (chronic obstructive pulmonary disease) (Chronic Medical) Dyslipidemia (Chronic Medical) HTN (hypertension) (Chronic Medical) Macular degeneration (Chronic Medical) Urethral stenosis (Chronic Medical) Family History: Family History Father , at age 77 Myocardial infarction Mother , at age 49 MVA (motor vehicle accident) Sister , at age 83 Lung cancer Exam Vital Signs: Temperature 98.1 F 11/25/16 16:00 Pulse Rate 96 11/25/16 16:00 Respiratory Rate 16 11/25/16 18:45 Blood Pressure 98/50 11/25/16 15:15 Pulse Oximetry 93 11/25/16 18:45 Height/Weight/BMI: Height 1.8 m Weight 96.6 kg Body Mass Index 29.7 Results - Labs CBC & Chem 7: 11/25/16 07:05 11/25/16 07:05 Assessment and Plan (1) UTI (urinary tract infection) Current visit: Yes Status: Acute (2) Severe sepsis Current visit: Yes Status: Acute Assessment and Plan: I have independently evaluated and examined this patient. I reviewed the chart, the patient's history, and the COLOR MIXER/PA's documented findings as above. We discussed and formulated the assessment and plan as above with additions as below: Mr. Joel is an 89-year-old male with multiple medical problems as outlined above. He developed chills last night associated with decreased appetite and generalized weakness such that he was unable to ambulate this morning. He has not noted specific urinary symptoms but reports this feels just like he did last time he had a bad bladder infection. Blood pressure was marginal in the emergency room and he was hypoxic requiring initiation of oxygen. On examination the patient is alert and cooperative. Respirations are nonlabored with clear breath sounds. Cardiac rhythm regular Abdomen soft, nontender +1 bilateral lower extremity edema with marked degenerative changes in the hands 1.5 cm faint erythema without ulceration over the interphalangeal area between the third-fourth toes of the right foot with flaky border but no drainage. Chest x-ray reviewed by myself-NAD. Venous Doppler without evidence of DVT. Leukocytosis present, creatinine elevated as noted (GFR typically 70-80 in the past) Lactic acid 2.3-2.9-2.8 Procalcitonin 3.33 Code status discussed with patient and he describes a living well with request that interventions be initiated but he does not want to be kept alive on machines if it's not serving a purpose or indefinitely. Full code order has written. Patient has a history of nausea/vomiting with Cipro but given penicillin allergy will treat UTI with IV Levaquin adjusted for renal dysfunction. 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
[2016-11-25] MEDS ORDERED: ONDANSETRON 4 MG/2 ML INJECTION IVP PRN (10:29)
[2016-11-25] MEDS ORDERED: METOCLOPRAMIDE 10mg/2ml INJECTION IVP PRN (10:30)
[2016-11-25] MEDS: LEVOFLOXACIN PB 750 MG/150 ML BAG IV SCH (11:49)
--- NOTE | 2016-11-25 12:59 | Pharmacy Consult- Renal Dosing ---
Pharamcy Consul-Renal Dosing - Laboratory Information LEVAQUIN DOSING: Patient's SCr = 1.6 mg/dl. Calculated CrCl = 37 mL/min. I will continue the Levofloxacin 750 mg IV q48h. The pharmacy will continue to review the renal function and adjust the medications accordingly. Thank you for the Consult, Shane Gonsalez, Pharmacist.
[2016-11-25] MEDS: ALBUTEROL/IPRATROPIUM 2.5mg-0.5mg/3ml NEB AEROSOL SCH ×3 (18:45→19:12)
[2016-11-25] MEDS: ENOXAPARIN 30 MG/0.3 ML INJECTION SQ SCH (18:53)
[2016-11-25] MEDS: FAMOTIDINE 20 MG TABLET PO SCH (18:53)
[2016-11-25] MEDS: ACETAMINOPHEN 325 MG TABLET PO PRN (19:57)
[2016-11-26] MEDS: ZOLPIDEM 5 MG TABLET PO PRN ×2 (00:20→21:40)
[2016-11-26] MEDS: CLOTRIMAZOLE/BETAMETHASONE CREAM 15gm TOP SCH ×3 (00:32→21:45)
[2016-11-26] MEDS: ACETAMINOPHEN 325 MG TABLET PO PRN ×2 (04:39→21:40)
[2016-11-26] MEDS: ALBUTEROL/IPRATROPIUM 2.5mg-0.5mg/3ml NEB AEROSOL SCH ×4 (06:31→19:15)
[2016-11-26] MEDS: OMEPRAZOLE 20 MG CAPSULE PO SCH (06:51)
[2016-11-26] MEDS: ASPIRIN 325 MG TABLET PO SCH (09:13)
[2016-11-26] MEDS: FAMOTIDINE 20 MG TABLET PO SCH (09:13)
[2016-11-26] MEDS: ENOXAPARIN 30 MG/0.3 ML INJECTION SQ SCH (09:13)
[2016-11-26] MEDS: CLOPIDOGREL 75 MG TABLET PO SCH (10:33)
--- NOTE | 2016-11-26 13:52 | Progress Note ---
Subjective: Mr. Joel was up in a chair when seen this morning. He indicated he was doing okay although had a fever last night at which time he felt "chilly". He denied dyspnea, chest pain, or palpitations. Said no nausea or vomiting and his appetite is good. He denied lightheadedness or weakness and was able to stand and use his legs today reporting that his strength is much better today than yesterday. Oral intake has been limited thus far. Objective Vital signs: Temperature 100.4 F 11/26/16 04:00 Pulse Rate 113 H 11/26/16 08:00 Respiratory Rate 20 11/26/16 11:40 Blood Pressure 112/54 11/26/16 06:01 Pulse Oximetry 99 11/26/16 11:40 I/O 510/1298 (fluid volume incomplete-patient received 2 L normal saline not accounted for); weight down 1 kg from admission EXAM General-NAD, alert, fluent speech HEENT-conjunctiva clear, oropharynx clear Lungs-respirations nonlabored, good airflow, crackles at the right base Cardiac-regular rhythm with low-grade tachycardia, S1-S2 Abd-soft, nontender, bowel sounds present Ext-+1 edema bilateral lower extremities, marked degenerative changes small joints of the hands Neuro-MAEW Psych-oriented 3, euthymic - Height/Weight/BMI: Height 1.8 m Weight 95.3 kg Body Mass Index 29.7 Results - Labs CBC & Chem 7: 11/26/16 04:37 11/26/16 04:37 Labs: Differential-segs 86, bands 3, lymphocytes 3, monocytes 3, eosinophils 5 Procalcitonin 1.97 Microbiology Results: Blood cultures/urine culture all negative after 1 day Assessment and Plan (1) Severe sepsis Current visit: Yes Status: Acute (2) UTI (urinary tract infection) Current visit: Yes Status: Acute DVT Prophylaxis: SCD's GI Prophylaxis: Pepcid Resuscitation Status: Full Code Assessment and Plan: ASSESSMENT Severe Sepsis (lactate 2.3, hypoxia, ANNALISA, hypotension) secondary to UTI Acute hypoxic respiratory failure with oxygen saturation of 85% on room air ANNALISA with creatinine of 1.6, baseline 1.1 CKD, stage 2-3 Normocytic anemia Wound to right foot (POA) - improving Urethral stenosis, frequent UTI, straight catheterizes BID Hx of malignant neoplasm of prostate 2005 - radiation CAD (coronary artery disease) + History of [place] COPD (chronic obstructive pulmonary disease) Dyslipidemia HTN (hypertension) Macular degeneration PLAN Patient is doing well although low-grade tachycardia persists with low normal blood pressures. Additional IV fluids to be given as oral intake has been limited. Recurrent fever overnight, no culture data at present to dictate alternate therapy and procalcitonin improved and clinically improved. Continue Levaquin at 48 hr interval. Stable to transfer out of ICU PT/OT consults Hypoxia has resolved, and renal function/hemoglobin relatively stable. Reassess chest x-ray in a.m. Sepsis Assessment - Evaluation Sepsis screening result: Sepsis Risk Hospital Course Summary Disclaimer: The visit summary below is not to be considered part of the above Progress Note. 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 Severe sepsis secondary to UTI -Linezolid was given in the Ed. Will start Levaquin (reaction to cipro is nausea/vomiting) -multiple allergies reviewed: PCN causes an itchy rash and facial swelling -Organ dysfunction: ANNALISA, hypoxia, hypotension -IVF: received 1L fluid bolus in ED; will start bolus of 250 ml/hr -if repeat lactate is 4 or greater (indicating shock) we will give the full fluid bolus of 2900 mL -if repeat lactate is 4 or greater we will reassess him within 6 hours and trend lactate levels -Called [facility] in [place]: BUN/creatinine was 28/1.13 in July and 25/ 1.17 in June. -Place [facility] due to self-catheterization history and to monitor I/Os -Supplemental oxygen; DuoNeb PRN; incentive spirometry. 50 pack year smoking hx and underlying COPD. -Consider PE workup if respiratory status doesn't improve. Venous doppler of right leg was negative for DVT. -SIRS criteria = fever, leukocytosis, tachycardia, tachypnea -SOFA score = 2 (1 point for MAP <70 and 1 point for Cr 1.6) Advanced directives -lists all 3 children as DPOA's -Reported DNR in ED but pt reports that he wants resuscitation (just doesn't want to be kept on a ventilator) - will need to clarify. -Does have a living will -[facility] does not have a DNR on file; code status has not been listed Lovenox for VTE prophylaxis. PLAN 11/26/16 14:05 Patient is doing well although low-grade tachycardia persists with low normal blood pressures. Additional IV fluids to be given as oral intake has been limited. Recurrent fever overnight, no culture data at present to dictate alternate therapy and procalcitonin improved and clinically improved. Continue Levaquin at 48 hr interval. Stable to transfer out of ICU PT/OT consults Hypoxia has resolved, and renal function/hemoglobin relatively stable. Reassess chest x-ray in a.m.
[2016-11-26] MEDS: NS 1,000 ML IV SCH ×2 (14:07→22:10)
[2016-11-26 16:57] VITALS: BMI 30.2
[2016-11-27] MEDS: OMEPRAZOLE 20 MG CAPSULE PO SCH (06:41)
[2016-11-27] MEDS: ALBUTEROL/IPRATROPIUM 2.5mg-0.5mg/3ml NEB AEROSOL SCH ×5 (07:22→21:40)
[2016-11-27] MEDS: CLOTRIMAZOLE/BETAMETHASONE CREAM 15gm TOP SCH ×2 (08:55→20:19)
[2016-11-27] MEDS: ASPIRIN 325 MG TABLET PO SCH (08:55)
[2016-11-27] MEDS: ENOXAPARIN 30 MG/0.3 ML INJECTION SQ SCH (08:56)
[2016-11-27] MEDS: FAMOTIDINE 20 MG TABLET PO SCH (08:57)
[2016-11-27] MEDS: CLOPIDOGREL 75 MG TABLET PO SCH (08:57)
[2016-11-27] MEDS: LEVOFLOXACIN PB 750 MG/150 ML BAG IV SCH (10:52)
[2016-11-27] MEDS ORDERED: NS FLUSH BAG 500ml IV PRN (10:54)
--- NOTE | 2016-11-27 16:14 | Progress Note ---
Subjective: Mr. Joel reports mild weakness in that he is not sleeping well. He's had minimal dyspnea but was wheezing a little earlier this morning. He denied nausea or vomiting, has had no diarrhea but is having stools. He denied fevers and has not been lightheaded when up to the commode. Nursing reports minor hypoxia earlier today requiring supplemental oxygen. Objective Vital signs: Temperature 97.9 F 11/27/16 15:40 Pulse Rate 80 11/27/16 15:40 Respiratory Rate 22 11/27/16 15:40 Blood Pressure 113/62 11/27/16 15:40 Pulse Oximetry 92-RA 11/27/16 15:40 I/O 1596/1040 EXAM General-NAD, alert HEENT-conjunctiva clear, sclera anicteric, oropharynx clear Lungs-respirations nonlabored, good airflow, breath sounds clear, no wheezing at present Cardiac-regular rhythm, S1-S2 Abd-soft, obese, nontender, bowel sounds present Ext-+1 edema bilateral lower extremity; localized area of athlete's foot between third and fourth toes on the right foot-no indication of cellulitis, extensive bruising on upper extremities Neuro-MAEW Psych-alert, cooperative, euthymic - Height/Weight/BMI: Height 1.8 m Weight 98.1 kg Body Mass Index 30.2 Results - Labs CBC & Chem 7: 11/27/16 04:05 11/27/16 04:05 Microbiology Results: Blood cultures 2 negative after 2 days Urine culture low colony counts mixed bacterial pattie - Imaging and Cardiology Chest x-ray Status: image reviewed by me (chest x-ray without focal infiltrate, minor increase in vascular markings.) Assessment and Plan (1) Severe sepsis Current visit: Yes Status: Acute (2) UTI (urinary tract infection) Current visit: Yes Status: Acute DVT Prophylaxis: SCD's GI Prophylaxis: Pepcid, other Resuscitation Status: Full Code Assessment and Plan: ASSESSMENT Severe Sepsis (lactate 2.3, hypoxia, ANNALISA, hypotension) secondary to UTI Acute hypoxic respiratory failure with oxygen saturation of 85% on room air ANNALISA with creatinine of 1.6, baseline 1.1 CKD, stage 2-3 Normocytic anemia Wound to right foot (POA) - improving Urethral stenosis, frequent UTI, 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 Received IV fluids yesterday for low normal blood pressures. Chest x-ray suggests minor volume overload today, resume usual oral Lasix dose. Titrate oxygen as status permits. Increase activity. Leukocytosis has resolved, clinically improved. Continue Levaquin adjusted for renal function. Bladder training initiated-patient self catheterizes at home, resume Flomax. Sepsis Assessment - Evaluation Sepsis screening result: Sepsis Risk Hospital Course Summary Disclaimer: The visit summary below is not to be considered part of the above Progress Note. 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 Severe sepsis secondary to UTI -Linezolid was given in the Ed. Will start Levaquin (reaction to cipro is nausea/vomiting) -multiple allergies reviewed: PCN causes an itchy rash and facial swelling -Organ dysfunction: ANNALISA, hypoxia, hypotension -IVF: received 1L fluid bolus in ED; will start bolus of 250 ml/hr -if repeat lactate is 4 or greater (indicating shock) we will give the full fluid bolus of 2900 mL -if repeat lactate is 4 or greater we will reassess him within 6 hours and trend lactate levels -Called [facility] in [place]: BUN/creatinine was 28/1.13 in July and 25/ 1.17 in June. -Place Hale due to self-catheterization history and to monitor I/Os -Supplemental oxygen; DuoNeb PRN; incentive spirometry. 50 pack year smoking hx and underlying COPD. -Consider PE workup if respiratory status doesn't improve. Venous doppler of right leg was negative for DVT. -SIRS criteria = fever, leukocytosis, tachycardia, tachypnea -SOFA score = 2 (1 point for MAP <70 and 1 point for Cr 1.6) Advanced directives -lists all 3 children as DPOA's -Reported DNR in ED but pt reports that he wants resuscitation (just doesn't want to be kept on a ventilator) - will need to clarify. -Does have a living will -[facility]; code status has not been listed Lovenox for VTE prophylaxis. PLAN 11/26/16 14:05 Patient is doing well although low-grade tachycardia persists with low normal blood pressures. Additional IV fluids to be given as oral intake has been limited. Recurrent fever overnight, no culture data at present to dictate alternate therapy and procalcitonin improved and clinically improved. Continue Levaquin at 48 hr interval. Stable to transfer out of ICU PT/OT consults Hypoxia has resolved, and renal function/hemoglobin relatively stable. Reassess chest x-ray in a.m. 11/27/16 16:24 Again requiring low-flow oxygen intermittently and patient reports wheezing earlier today. Received IV fluids yesterday for low normal blood pressures. Chest x-ray suggests minor volume overload today, resume usual oral Lasix dose. Titrate oxygen as status permits. Increase activity. Leukocytosis has resolved, clinically improved. Continue Levaquin adjusted for renal function. Bladder training initiated-patient self catheterizes at home, resume Flomax.
[2016-11-27] MEDS: FUROSEMIDE 20 MG TABLET PO SCH (17:29)
[2016-11-27] MEDS: TAMSULOSIN 0.4 MG CAPSULE PO SCH (20:19)
[2016-11-28] MEDS: OMEPRAZOLE 20 MG CAPSULE PO SCH (06:12)
[2016-11-28] MEDS: ALBUTEROL/IPRATROPIUM 2.5mg-0.5mg/3ml NEB AEROSOL SCH ×4 (07:05→19:40)
[2016-11-28] MEDS: ASPIRIN 325 MG TABLET PO SCH (08:36)
[2016-11-28] MEDS: ENOXAPARIN 30 MG/0.3 ML INJECTION SQ SCH (08:37)
[2016-11-28] MEDS: FAMOTIDINE 20 MG TABLET PO SCH (08:37)
[2016-11-28] MEDS: CLOTRIMAZOLE/BETAMETHASONE CREAM 15gm TOP SCH ×3 (08:37→22:49)
[2016-11-28] MEDS: FUROSEMIDE 20 MG TABLET PO SCH (08:37)
[2016-11-28] MEDS: CLOPIDOGREL 75 MG TABLET PO SCH (08:37)
--- NOTE | 2016-11-28 10:38 | XRay Report ---
INDICATION: sepsis, tachypnea PROCEDURE: CHEST 2-VIEWS UPRIGHT (PA & LAT) Encounter: Initial COMPARISON: November 25, 2016 FINDINGS: Increasing interstitial markings in the right mid to lower lung field compared to the prior study with chronic abnormal markings in the left base. Some peripheral patchy airspace disease also noted in the right upper lobe. Pleural thickening in the apices. No pneumothorax. Trace effusions. Heart size and mediastinal contours are stable. Pulmonary vascularity is slightly indistinct. Impression: Worsening right-sided airspace disease. Chest CT may be helpful for further evaluation. .
[2016-11-28] MEDS ORDERED: FUROSEMIDE 40 MG/4 ML INJECTION IVP ONE (13:18)
--- NOTE | 2016-11-28 14:56 | Progress Note ---
<AvinashKiersten D - Last Filed: 11/28/16 14:53> Subjective: Doyle was seen as he was completing his ambulatory oximetry. His oxygen level was maintained above 90%. He tends to desaturate at night. He denies feeling short of breath at rest or with exertion. He denies any cough or chest pain. His appetite has been good. He denies any nausea, constipation. He denies any weakness or dizziness when he ambulates, much better than when he was admitted when his legs felt like "wet noodles". He states that the sore spot in between his right fourth and fifth toes has resolved, and it no longer bothers him to walk. Objective Vital signs: Temperature 98.0 F 11/28/16 11:21 Pulse Rate 108 H 11/28/16 13:18 Respiratory Rate 16 11/28/16 11:46 Blood Pressure 133/68 11/28/16 11:21 Pulse Oximetry 93 11/28/16 13:18 Height/Weight/BMI: Height 1.8 m Weight 97.1 kg Body Mass Index 30.2 - Constitutional Present: no acute distress, well nourished, well developed - Routine HEENT Exam Eye: Absent: conjunctival icterus ENT: Present: mucous membranes moist, oropharynx clear - Routine Respiratory Exam Present: crackles (bibasilar) - Routine Cardiovascular Exam Present: RRR, S1, S2, tachycardia (110) - Routine Abdominal Exam Present: soft, normoactive bowel sounds, non distended, non tender - Routine Extremities Exam Present: no edema, pulses intact - Routine Skin Exam Present: intact, dry, warm - Routine Neurological Exam Present: alert, oriented X3, normal speech - Routine Psychiatric Exam Present: normal affect, normal thought process, cooperative Results - Labs CBC & Chem 7: 11/28/16 04:12 11/28/16 04:12 Assessment and Plan (1) UTI (urinary tract infection) Current visit: Yes Status: Acute (2) Severe sepsis Current visit: Yes Status: Acute DVT Prophylaxis: Lovenox GI Prophylaxis: Pepcid Resuscitation Status: Full Code Assessment and Plan: ASSESSMENT Severe Sepsis (lactate 2.3, hypoxia, ANNALISA, hypotension) secondary to UTI Acute hypoxic respiratory failure with oxygen saturation of 85% on room air ANNALISA with creatinine of 1.6, baseline 1.1 CKD, stage 2-3 Normocytic anemia Wound to right foot (POA) - improving Urethral stenosis, frequent UTI, 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 Will assess overnight oximetry tonight. Weight is trending down, though he is still about [address] Knott has already ordered an additional dose of Lasix. Renal function is at baseline with BUN of 24 and creatinine of 1.0. Continue Levaquin for UTI. Blood pressure has stabilized. Continue bladder training, anticipate discontinuation of Hale tomorrow. Discussed with RT and with Dr. Felipe. Sepsis Assessment - Evaluation Sepsis screening result: Sepsis Risk Hospital Course Summary Disclaimer: The visit summary below is not to be considered part of the above Progress Note. 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 Severe sepsis secondary to UTI -Linezolid was given in the Ed. Will start Levaquin (reaction to cipro is nausea/vomiting) -multiple allergies reviewed: PCN causes an itchy rash and facial swelling -Organ dysfunction: ANNALISA, hypoxia, hypotension -IVF: received 1L fluid bolus in ED; will start bolus of 250 ml/hr -if repeat lactate is 4 or greater (indicating shock) we will give the full fluid bolus of 2900 mL -if repeat lactate is 4 or greater we will reassess him within 6 hours and trend lactate levels -Called [facility] in [place]: BUN/creatinine was 28/1.13 in July and 25/ 1.17 in June. -Place Hale due to self-catheterization history and to monitor I/Os -Supplemental oxygen; DuoNeb PRN; incentive spirometry. 50 pack year smoking hx and underlying COPD. -Consider PE workup if respiratory status doesn't improve. Venous doppler of right leg was negative for DVT. -SIRS criteria = fever, leukocytosis, tachycardia, tachypnea -SOFA score = 2 (1 point for MAP <70 and 1 point for Cr 1.6) Advanced directives -lists all 3 children as DPOA's -Reported DNR in ED but pt reports that he wants resuscitation (just doesn't want to be kept on a ventilator) - will need to clarify. -Does have a living will -[facility] does not have a DNR on file; code status has not been listed Lovenox for VTE prophylaxis. 11/26/16 Patient is doing well although low-grade tachycardia persists with low normal blood pressures. Additional IV fluids to be given as oral intake has been limited. Recurrent fever overnight, no culture data at present to dictate alternate therapy and procalcitonin improved and clinically improved. Continue Levaquin at 48 hr interval. Stable to transfer out of ICU PT/OT consults Hypoxia has resolved, and renal function/hemoglobin relatively stable. Reassess chest x-ray in a.m. 11/27/16 Again requiring low-flow oxygen intermittently and patient reports wheezing earlier today. Received IV fluids yesterday for low normal blood pressures. Chest x-ray suggests minor volume overload today, resume usual oral Lasix dose. Titrate oxygen as status permits. Increase activity. Leukocytosis has resolved, clinically improved. Continue Levaquin adjusted for renal function. Bladder training initiated-patient self catheterizes at home, resume Flomax. 11/28/16 Did well with ambulatory oximetry maintaining oxygen saturations at 90% or greater. Will assess overnight oximetry tonight. Weight is trending down, though he is still about [address] Knott has already ordered an additional dose of Lasix. Renal function is at baseline with BUN of 24 and creatinine of 1.0. Continue Levaquin for UTI. Blood pressure has stabilized. Continue bladder training, anticipate discontinuation of Hale tomorrow. Discussed with RT and with Dr. Felipe. <Humera Felipe Last Filed: 11/28/16 15:27> Objective Vital signs: Temperature 98.0 F 11/28/16 11:21 Pulse Rate 108 H 11/28/16 13:18 Respiratory Rate 18 11/28/16 15:04 Blood Pressure 133/68 11/28/16 11:21 Pulse Oximetry 94 11/28/16 15:04 Height/Weight/BMI: Height 1.8 m Weight 97.1 kg Body Mass Index 30.2 Results - Labs CBC & Chem 7: 11/28/16 04:12 11/28/16 04:12 Assessment and Plan (1) Severe sepsis Current visit: Yes Status: Acute (2) UTI (urinary tract infection) Current visit: Yes Status: Acute Assessment and Plan: I have independently evaluated and examined this patient. I reviewed the chart, the patient's history, and the SENIOR ADMINISTRATIVE SUPPORT/PA's documented findings as above. We discussed and formulated the assessment and plan as above with additions as below: Mr. Joel reports that he feels all right. He has a minor cough and was on 2 L when seen earlier this morning. RT reported that oxygen saturation on room air this morning was 87% and did not improve after several assessments or trial of incentive spirometry. 1 L oxygen improved only 89%. Patient denies any symptoms at the time and felt his breathing was entirely normal. Later in the day ambulatory oximetry was obtained on room air at which time room air saturation was 93% initially and remained 91% or higher while walking on 150 feet. RT noted increased heart rate with ambulation but no other symptoms. The patient denies lightheadedness and has had no recurrent fevers. NAD, alert Abdomen is benign Respirations nonlabored, good airflow, breath sounds clear anteriorly with faint crackles at the bases posteriorly; no wheezing Yesterday's chest x-ray had minor increased vascular markings-diurese today. Overnight oximetry tonight. Plan to discontinue Hale catheter in the morning as noted. Due for Levaquin dose tomorrow (every 48 hours). Improved renal function may be appropriate to dose Levaquin daily-will clarify creatinine clearance with pharmacy in the morning. Will give initial oral dose here due to reported allergy to oral Cipro-nausea/ vomiting. Hospital Course Summary Disclaimer: The visit summary below is not to be considered part of the above Progress Note.
[2016-11-28] MEDS: TAMSULOSIN 0.4 MG CAPSULE PO SCH ×2 (19:50→22:49)
[2016-11-29] MEDS: SALINE FLUSH 10ml SYRINGE IVF PRN (03:12)
[2016-11-29] MEDS: LEVOFLOXACIN 750 MG TABLET PO SCH ×2 (05:53→07:31)
[2016-11-29] MEDS: OMEPRAZOLE 20 MG CAPSULE PO SCH (05:53)
[2016-11-29] MEDS: ALBUTEROL/IPRATROPIUM 2.5mg-0.5mg/3ml NEB AEROSOL SCH ×4 (07:05→19:51)
[2016-11-29] MEDS: FUROSEMIDE 20 MG TABLET PO SCH (08:54)
[2016-11-29] MEDS: FAMOTIDINE 20 MG TABLET PO SCH (08:54)
[2016-11-29] MEDS: CLOPIDOGREL 75 MG TABLET PO SCH (08:54)
[2016-11-29] MEDS: ASPIRIN 325 MG TABLET PO SCH (08:56)
[2016-11-29] MEDS: CLOTRIMAZOLE/BETAMETHASONE CREAM 15gm TOP SCH ×2 (08:58→20:30)
[2016-11-29] MEDS: ENOXAPARIN 40 MG/0.4 ML INJECTION SQ SCH (09:00)
--- NOTE | 2016-11-29 14:10 | Progress Note ---
Subjective: F/U: Severe sepsis, respiratory failure. Feeling better today, but still needing O2. Notes some cough/congestion but no pain with breathing. No f/c. Did qualify for nocturnal oxygen base on overnight oximetry. This morning, not able to come off of O2. Pt somewhat reluctant for home O2 use. Eating well. No ab pain. Tolerating therapy and feels strength improving. Not having swelling to legs. Objective Vital signs: Temperature 98.2 F 11/29/16 08:19 Pulse Rate 101 H 11/29/16 08:19 Respiratory Rate 14 11/29/16 11:50 Blood Pressure 117/65 11/29/16 08:19 Pulse Oximetry 95 11/29/16 11:34 Height/Weight/BMI: Height 1.8 m Weight 88 kg Body Mass Index 30.2 - Constitutional Present: no acute distress, well nourished, well developed, cooperative - Routine HEENT Exam Head: Present: normocephalic, atraumatic Eye: Present: EOMI, PERRL ENT: Present: mucous membranes moist - Routine Respiratory Exam Present: decreased breath sounds, diminished air movement. Absent: respiratory distress, wheezes, crackles - Routine Cardiovascular Exam Present: RRR, no murmur - Routine Abdominal Exam Present: soft, normoactive bowel sounds, non distended, non tender - Routine Extremities Exam Present: cyanosis, clubbing, no edema, pulses intact - Routine Musculoskeletal Exam Musculoskeletal: Present: no clubbing or cyanosis, normal strength - Routine Skin Exam Present: intact, dry, warm - Routine Psychiatric Exam Present: normal affect, normal thought process, cooperative Results - Labs CBC & Chem 7: 11/29/16 04:13 11/29/16 04:13 Assessment and Plan (1) Severe sepsis Current visit: Yes Status: Acute (2) UTI (urinary tract infection) Current visit: Yes Status: Acute DVT Prophylaxis: SCD's, Lovenox Resuscitation Status: Full Code Assessment and Plan: ASSESSMENT Severe Sepsis (lactate 2.3, hypoxia, ANNALISA, hypotension) secondary to UTI Acute hypoxic respiratory failure with oxygen saturation of 85% on room air ANNALISA with creatinine of 1.6, baseline 1.1 CKD - stage 3 Normocytic anemia Wound to right foot (POA) - improving Urethral stenosis, frequent UTI, 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 Recheck CXR to due to O2 needs. Change Levaquin to 750mg po daily - will need another 5 days for coverage. No nausea or vomiting noted. Encourage continued ambulation and activities to help restore strength. CM arranged for Home Health for PT/OT. Hale removed, will need strait caths as at home. Likely discharge to home today. Case discussed with CM. Sepsis Assessment - Evaluation Sepsis screening result: No Definite Risk Hospital Course Summary Disclaimer: The visit summary below is not to be considered part of the above Progress Note. 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 Severe sepsis secondary to UTI -Linezolid was given in the Ed. Will start Levaquin (reaction to cipro is nausea/vomiting) -multiple allergies reviewed: PCN causes an itchy rash and facial swelling -Organ dysfunction: ANNALISA, hypoxia, hypotension -IVF: received 1L fluid bolus in ED; will start bolus of 250 ml/hr -if repeat lactate is 4 or greater (indicating shock) we will give the full fluid bolus of 2900 mL -if repeat lactate is 4 or greater we will reassess him within 6 hours and trend lactate levels -Called [facility] in [place]: BUN/creatinine was 28/1.13 in July and 25/ 1.17 in June. -Place Hale due to self-catheterization history and to monitor I/Os -Supplemental oxygen; DuoNeb PRN; incentive spirometry. 50 pack year smoking hx and underlying COPD. -Consider PE workup if respiratory status doesn't improve. Venous doppler of right leg was negative for DVT. -SIRS criteria = fever, leukocytosis, tachycardia, tachypnea -SOFA score = 2 (1 point for MAP <70 and 1 point for Cr 1.6) Advanced directives -lists all 3 children as DPOA's -Reported DNR in ED but pt reports that he wants resuscitation (just doesn't want to be kept on a ventilator) - will need to clarify. -[facility]; code status has not been listed Lovenox for VTE prophylaxis. 11/26/16 Patient is doing well although low-grade tachycardia persists with low normal blood pressures. Additional IV fluids to be given as oral intake has been limited. Recurrent fever overnight, no culture data at present to dictate alternate therapy and procalcitonin improved and clinically improved. Continue Levaquin at 48 hr interval. Stable to transfer out of ICU PT/OT consults Hypoxia has resolved, and renal function/hemoglobin relatively stable. Reassess chest x-ray in a.m. 11/27/16 Again requiring low-flow oxygen intermittently and patient reports wheezing earlier today. Received IV fluids yesterday for low normal blood pressures. Chest x-ray suggests minor volume overload today, resume usual oral Lasix dose. Titrate oxygen as status permits. Increase activity. Leukocytosis has resolved, clinically improved. Continue Levaquin adjusted for renal function. Bladder training initiated-patient self catheterizes at home, resume Flomax. 11/28/16 Did well with ambulatory oximetry maintaining oxygen saturations at 90% or greater. Will assess overnight oximetry tonight. Weight is trending down, though he is still about [address] Knott has already ordered an additional dose of Lasix. Renal function is at baseline with BUN of 24 and creatinine of 1.0. Continue Levaquin for UTI. Blood pressure has stabilized. Continue bladder training, anticipate discontinuation of Hale tomorrow. 11/29/16 Arranging O2 for home - definitely needs at night, will low O2 sats today will reassess for O2 at rest/activities. Recheck CXR to due to O2 needs. Change Levaquin to 750mg po daily - will need another 5 days for coverage. No nausea or vomiting noted. Encourage continued ambulation and activities to help restore strength. CM arranged for Home Health for PT/OT. Hale removed, will need strait caths as at home. Likely discharge to home today.
--- NOTE | 2016-11-29 15:32 | XRay Report ---
LOCATION OF DICTATION: [facility] EXAM: XR chest 2V HISTORY: F/U COMPARISON: No prior studies available for comparison. FINDINGS: The heart size is normal. The mediastinal configuration is unremarkable. Improved aeration within both lungs with mild residual interstitial opacities in the left lung base may reflect atelectasis or mild infiltrates. There are trace bilateral pleural effusions suggested. There is no pneumothorax. Mild to moderate spondylosis of the thoracic spine. IMPRESSION: Improved aeration with only minimal residual interstitial opacities in the left lung base may reflect atelectasis or infiltrates. Trace pleural effusions suggested. .
[2016-11-29] MEDS ORDERED: FUROSEMIDE 40 MG/4 ML INJECTION IVP ONE (15:43)
[2016-11-29] MEDS: PredniSONE 20 MG TABLET PO SCH (16:48)
[2016-11-29] MEDS: TAMSULOSIN 0.4 MG CAPSULE PO SCH (20:30)
[2016-11-29] MEDS: SALINE 0.65% NASAL SPRAY 44 ML BOTTLE EA NOSTRIL SCH (20:39)
[2016-11-30] MEDS: OMEPRAZOLE 20 MG CAPSULE PO SCH (05:45)
[2016-11-30] MEDS: ALBUTEROL/IPRATROPIUM 2.5mg-0.5mg/3ml NEB AEROSOL SCH ×4 (07:13→20:07)
[2016-11-30] MEDS: LEVOFLOXACIN 750 MG TABLET PO SCH (07:44)
--- NOTE | 2016-11-30 08:50 | Echocardiogram ---
DATE 11/29/2016 INDICATION Coronary artery disease, dyspnea. TECHNICAL QUALITY: Technically good 2D, M-mode and Doppler echocardiographic images were submitted for interpretation. FINDINGS 1. CARDIAC CHAMBERS. All cardiac chamber measurements are normal. Aortic root diameter is normal. RV size and contractility appear normal. 2. LV FUNCTION. Wall thickness is normal per my measurement. LV wall thickness is borderline increased at 11-12 mm suggestive of borderline LVH. I don't believe the measurement of the posterior wall is accurate. Wall motion analysis is normal. Systolic function is normal. Ejection fraction is normal. EF is estimated at 55-60%. 3. VALVES. Aortic valve is trileaflet, exhibits sclerotic changes and calcification present. Valve opening appears to be mildly restricted. Mitral valve exhibits annular calcification posteriorly. Valve excursion is normal. Tricuspid valve structure and motion appear normal, normal valve excursion. 4. DOPPLER. Doppler shows trace regurgitation involving mitral and tricuspid valves. Aortic stenosis study shows a peak flow velocity of 1.7 m/sec with peak and mean pressure gradient measured at 12 and 7 mmHg. Aortic valve area by continuity equation is 1.67 cm2 based on LVOT diameter of 1.7 cm. Peak flow velocity at the LVOT level is 1.1 m/sec. 5. No evidence of pericardial effusion, intracardiac masses or demonstrable shunts. Central venous pressure is normal. Systolic PA pressure of 36 mmHg is borderline elevated. IMPRESSION 1. Borderline LVH. 2. Normal LV systolic function, EF of 55-60%. 3. Mild diastolic dysfunction. 4. Dysrhythmia is present (PVCs). 5. Calcific aortic valve with mild stenosis. 6. Mitral annular calcification. 7. Normal central venous pressure. 8. Systolic PA pressure estimated at 36 mmHg which is slightly elevated - 35 mmHg being upper normal range. MTDD
[2016-11-30] MEDS: CLOPIDOGREL 75 MG TABLET PO SCH (08:58)
[2016-11-30] MEDS: CLOTRIMAZOLE/BETAMETHASONE CREAM 15gm TOP SCH ×2 (08:58→22:09)
[2016-11-30] MEDS: ASPIRIN 325 MG TABLET PO SCH (08:58)
[2016-11-30] MEDS: ENOXAPARIN 40 MG/0.4 ML INJECTION SQ SCH (08:58)
[2016-11-30] MEDS: PredniSONE 20 MG TABLET PO SCH (08:59)
[2016-11-30] MEDS: FAMOTIDINE 20 MG TABLET PO SCH (08:59)
[2016-11-30] MEDS: SALINE 0.65% NASAL SPRAY 44 ML BOTTLE EA NOSTRIL SCH ×4 (08:59→22:10)
[2016-11-30] MEDS: FUROSEMIDE 20 MG TABLET PO SCH (08:59)
--- NOTE | 2016-11-30 12:01 | Progress Note ---
<Tasneem Starr V - Last Filed: 11/30/16 11:57> Subjective: Castro is seen this morning in follow up. He is currently requiring 4 liters of oxygen to maintain oxygenation. He feels that overall his breathing is improving and can feel a difference with ambulating.Chronically uses oxygen only at night. Denies having pain on examination. Appetite is good. Objective Vital signs: Temperature 97.7 F 11/30/16 07:33 Pulse Rate 90 11/30/16 07:33 Respiratory Rate 16 11/30/16 11:20 Blood Pressure 126/67 11/30/16 07:33 Pulse Oximetry 94 11/30/16 11:20 Height/Weight/BMI: Height 1.8 m Weight 93.4 kg Body Mass Index 30.2 - Constitutional Present: no acute distress, well nourished, well developed - Routine HEENT Exam Eye: Present: EOMI ENT: Present: mucous membranes moist, dentition normal - Routine Respiratory Exam Present: CTA bilaterally. Absent: wheezes - Routine Cardiovascular Exam Present: RRR, S1, S2. Absent: murmur - Routine Abdominal Exam Present: soft, normoactive bowel sounds, non distended. Absent: tenderness - Routine Extremities Exam Present: pulses intact - Routine Back/Spine/Pelvis Exam Back/Spine: Present: full ROM - Routine Skin Exam Present: intact, dry, warm - Routine Neurological Exam Present: alert, oriented X3, CN II-XII intact - Routine Lymphatic Exam Lymphatic: Absent: adenopathy - Routine Psychiatric Exam Present: normal affect Results - Labs CBC & Chem 7: 11/29/16 04:13 11/29/16 04:13 Assessment and Plan (1) UTI (urinary tract infection) Current visit: Yes Status: Acute (2) Severe sepsis Current visit: Yes Status: Acute Assessment and Plan: ASSESSMENT Severe Sepsis (lactate 2.3, hypoxia, ANNALISA, hypotension) secondary to UTI Acute hypoxic respiratory failure with oxygen saturation of 85% on room air ANNALISA with creatinine of 1.6, baseline 1.1 CKD - stage 3 Normocytic anemia Wound to right foot (POA) - improving Urethral stenosis, frequent UTI, 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 Baseline oxygen 2 liters at night only. Will obtain CT to rule out PE given continued hypoxia. ECHO revels mild diastolic dysfunction. EF 55-60% Continue with Levaquin to 750mg po daily - end course on 12/05. Encourage continued ambulation for strengthening CM arranged for Home Health for PT/OT. Case discussed with attending- Dr Rodriguez Sepsis Assessment - Evaluation Sepsis screening result: No Definite Risk Hospital Course Summary Disclaimer: The visit summary below is not to be considered part of the above Progress Note. Hospital Course: Date of Admission: 11/25/16 ASSESSMENT Severe Sepsis (lactate 2.3, hypoxia, ANNALISA, hypotension) secondary to UTI Acute hypoxic respiratory failure with oxygen saturation of 85% on room air ANNALISA with creatinine of 1.6, baseline 1.1 Normocytic anemia Wound to right foot (POA) - improving Urethral stenosis, frequent UTI, straight catheterizes BID Hx of malignant neoplasm of prostate 2004 - radiation CAD (coronary artery disease) + History of ND COPD (chronic obstructive pulmonary disease) Dyslipidemia HTN (hypertension) Macular degeneration PLAN Admit, inpatient status, to CCU under the hospitalist service. Severe sepsis secondary to UTI -Linezolid was given in the Ed. Will start Levaquin (reaction to cipro is nausea/vomiting) -multiple allergies reviewed: PCN causes an itchy rash and facial swelling -Organ dysfunction: ANNALISA, hypoxia, hypotension -IVF: received 1L fluid bolus in ED; will start bolus of 250 ml/hr -if repeat lactate is 4 or greater (indicating shock) we will give the full fluid bolus of 2900 mL -if repeat lactate is 4 or greater we will reassess him within 6 hours and trend lactate levels -Called [facility] in [place]: BUN/creatinine was 28/1.13 in July and 25/ 1.17 in June. -Place Hale due to self-catheterization history and to monitor I/Os -Supplemental oxygen; DuoNeb PRN; incentive spirometry. 50 pack year smoking hx and underlying COPD. -Consider PE workup if respiratory status doesn't improve. Venous doppler of right leg was negative for DVT. -SIRS criteria = fever, leukocytosis, tachycardia, tachypnea -SOFA score = 2 (1 point for MAP <70 and 1 point for Cr 1.6) Advanced directives -lists all 3 children as DPOA's -Reported DNR in ED but pt reports that he wants resuscitation (just doesn't want to be kept on a ventilator) - will need to clarify. -Does have a living will -[facility] does not have a DNR on file; code status has not been listed Lovenox for VTE prophylaxis. 11/26/16 Patient is doing well although low-grade tachycardia persists with low normal blood pressures. Additional IV fluids to be given as oral intake has been limited. Recurrent fever overnight, no culture data at present to dictate alternate therapy and procalcitonin improved and clinically improved. Continue Levaquin at 48 hr interval. Stable to transfer out of ICU PT/OT consults Hypoxia has resolved, and renal function/hemoglobin relatively stable. Reassess chest x-ray in a.m. 11/27/16 Again requiring low-flow oxygen intermittently and patient reports wheezing earlier today. Received IV fluids yesterday for low normal blood pressures. Chest x-ray suggests minor volume overload today, resume usual oral Lasix dose. Titrate oxygen as status permits. Increase activity. Leukocytosis has resolved, clinically improved. Continue Levaquin adjusted for renal function. Bladder training initiated-patient self catheterizes at home, resume Flomax. 11/28/16 Did well with ambulatory oximetry maintaining oxygen saturations at 90% or greater. Will assess overnight oximetry tonight. Weight is trending down, though he is still about [address] Knott has already ordered an additional dose of Lasix. Renal function is at baseline with BUN of 24 and creatinine of 1.0. Continue Levaquin for UTI. Blood pressure has stabilized. Continue bladder training, anticipate discontinuation of Hale tomorrow. 11/29/16 Arranging O2 for home - definitely needs at night, will low O2 sats today will reassess for O2 at rest/activities. Recheck CXR to due to O2 needs. Change Levaquin to 750mg po daily - will need another 5 days for coverage. No nausea or vomiting noted. Encourage continued ambulation and activities to help restore strength. CM arranged for Home Health for PT/OT. Hale removed, will need strait caths as at home. Likely discharge to home today. 11/30/16 Continues to require 4 liters by nasal canula. Baseline oxygen 2 liters at night only. Will obtain CT to rule out PE given continued hypoxia. ECHO revels mild diastolic dysfunction. EF 55-60% Continue with Levaquin to 750mg po daily - end course on 12/05. Encourage continued ambulation for strengthening CM arranged for Home Health for PT/OT. Case discussed with attending- Dr Rodriguez <Deep Rodriguez - Last Filed: 11/30/16 15:12> Objective Vital signs: Temperature 97.8 F 11/30/16 11:00 Pulse Rate 90 11/30/16 07:33 Respiratory Rate 16 11/30/16 11:20 Blood Pressure 122/66 11/30/16 11:00 Pulse Oximetry 94 11/30/16 11:20 Height/Weight/BMI: Height 1.8 m Weight 93.4 kg Body Mass Index 30.2 Results - Labs CBC & Chem 7: 11/29/16 04:13 11/29/16 04:13 Assessment and Plan (1) Severe sepsis Current visit: Yes Status: Acute (2) UTI (urinary tract infection) Current visit: Yes Status: Acute DVT Prophylaxis: Lovenox Resuscitation Status: Full Code Assessment and Plan: ASSESSMENT Severe Sepsis (lactate 2.3, hypoxia, ANNALISA, hypotension) secondary to UTI Acute hypoxic respiratory failure with oxygen saturation of 85% on room air ANNALISA with creatinine of 1.6, baseline 1.1 CKD - stage 3 Normocytic anemia Wound to right foot (POA) - improving Urethral stenosis, frequent UTI, straight catheterizes BID Hx of malignant neoplasm of prostate 2004 - radiation CAD (coronary artery disease) + History of ND COPD (chronic obstructive pulmonary disease) Dyslipidemia HTN (hypertension) Macular degeneration Have independently interviewed and examined pt. Chart reviewed. Case discussed with CM and my [employer]. Care plan developed with my supervision; agree with above. Doing okay today. Still notes some cough and mild congestion. No pain with breathing. Still with need for oxygen. Eating well-no nausea or ab pain. Stools stable. Ambulating better (would like the nursed to walk him more). Lungs: decreased, basilar blunting. CV: regular AB: soft nt/nd MSE: awake alert appropriate Plan: CT PE protocol negative for PE or pneumonia - emphysematous changes seen. Will continue with Prednisone. Additional dose of IV lasix this afternoon. Work on weaning down O2. Add Mucinex DM and Acapella to help decrease cough. Encourage ambulation. Recheck lab in am. - Time spent with patient 25 - 35 minutes Hospital Course Summary Disclaimer: The visit summary below is not to be considered part of the above Progress Note. Hospital Course: Date of Admission: 11/25/16 ASSESSMENT Severe Sepsis (lactate 2.3, hypoxia, ANNALISA, hypotension) secondary to UTI Acute hypoxic respiratory failure with oxygen saturation of 85% on room air ANNALISA with creatinine of 1.6, baseline 1.1 Normocytic anemia Wound to right foot (POA) - improving Urethral stenosis, frequent UTI, straight catheterizes BID Hx of malignant neoplasm of prostate 2004 - radiation CAD (coronary artery disease) + History of ND COPD (chronic obstructive pulmonary disease) Dyslipidemia HTN (hypertension) Macular degeneration PLAN Admit, inpatient status, to CCU under the hospitalist service. Severe sepsis secondary to UTI -Linezolid was given in the Ed. Will start Levaquin (reaction to cipro is nausea/vomiting) -multiple allergies reviewed: PCN causes an itchy rash and facial swelling -Organ dysfunction: ANNALISA, hypoxia, hypotension -IVF: received 1L fluid bolus in ED; will start bolus of 250 ml/hr -if repeat lactate is 4 or greater (indicating shock) we will give the full fluid bolus of 2900 mL -if repeat lactate is 4 or greater we will reassess him within 6 hours and trend lactate levels -Called [facility] in [place]: BUN/creatinine was 28/1.13 in July and 25/ 1.17 in June. -Place Hale due to self-catheterization history and to monitor I/Os -Supplemental oxygen; DuoNeb PRN; incentive spirometry. 50 pack year smoking hx and underlying COPD. -Consider PE workup if respiratory status doesn't improve. Venous doppler of right leg was negative for DVT. -SIRS criteria = fever, leukocytosis, tachycardia, tachypnea -SOFA score = 2 (1 point for MAP <70 and 1 point for Cr 1.6) Advanced directives -lists all 3 children as DPOA's -Reported DNR in ED but pt reports that he wants resuscitation (just doesn't want to be kept on a ventilator) - will need to clarify. -Does have a living will -[facility] does not have a DNR on file; code status has not been listed Lovenox for VTE prophylaxis. 11/26/16 Patient is doing well although low-grade tachycardia persists with low normal blood pressures. Additional IV fluids to be given as oral intake has been limited. Recurrent fever overnight, no culture data at present to dictate alternate therapy and procalcitonin improved and clinically improved. Continue Levaquin at 48 hr interval. Stable to transfer out of ICU PT/OT consults Hypoxia has resolved, and renal function/hemoglobin relatively stable. Reassess chest x-ray in a.m. 11/27/16 Again requiring low-flow oxygen intermittently and patient reports wheezing earlier today. Received IV fluids yesterday for low normal blood pressures. Chest x-ray suggests minor volume overload today, resume usual oral Lasix dose. Titrate oxygen as status permits. Increase activity. Leukocytosis has resolved, clinically improved. Continue Levaquin adjusted for renal function. Bladder training initiated-patient self catheterizes at home, resume Flomax. 11/28/16 Did well with ambulatory oximetry maintaining oxygen saturations at 90% or greater. Will assess overnight oximetry tonight. Weight is trending down, though he is still about [address] Felipe has already ordered an additional dose of Lasix. Renal function is at baseline with BUN of 24 and creatinine of 1.0. Continue Levaquin for UTI. Blood pressure has stabilized. Continue bladder training, anticipate discontinuation of Hale tomorrow. 11/29/16 Arranging O2 for home - definitely needs at night, will low O2 sats today will reassess for O2 at rest/activities. Recheck CXR to due to O2 needs. Change Levaquin to 750mg po daily - will need another 5 days for coverage. No nausea or vomiting noted. Encourage continued ambulation and activities to help restore strength. arranged for Home Health for PT/OT. Hale removed, will need strait caths as at home. Evaluated for home O2 needs - 2L at rest and 6L with activities (interesting as he did not qualify for home O2 on the ). Will start prednisone 60mg daily and give additional Lasix. 11/30/16 Continues to require 4 liters by nasal canula. Baseline oxygen 2 liters at night only. Add Mucinex DM and acapella to help decrease cough. Will obtain CT to rule out PE given continued hypoxia. Results of CT PE protocol: No pulmonary embolus. Trace pleural effusions and lower lobe mild atelectasis. Emphysema. ECHO revels mild diastolic dysfunction. EF 55-60%. Continue with Levaquin to 750mg po daily - end course on 12/05. Encourage continued ambulation for strengthening. CM arranged for Home Health for PT/OT.
[2016-11-30] MEDS ORDERED: NS 100 ML ONE (12:28)
[2016-11-30] MEDS ORDERED: IOHEXOL 350mg/ml 75ml INJECTION ONE (12:28)
[2016-11-30] MEDS ORDERED: SALINE FLUSH 10ml SYRINGE ONE (12:28)
--- NOTE | 2016-11-30 13:13 | CT Scan Report ---
Indication: hypoxia, evaluate for PE PROCEDURE: CT angio pulm emboli: Encounter: Initial Comparison: Chest x-ray dated November 29, 2016 Technique: Axial CT pulmonary angiographic phase images were performed through the chest after the administration of intravenous contrast. Coronal and Sagittal MIP reconstructed images were created and reviewed. Automated Exposure Control and Iterative Reconstruction dose reducing techniques were utilized. Contrast: Omnipaque 350 62 mL Findings: Pulmonary arteries: Exam is diagnostic to the subsegmental pulmonary arterial level. No filling defects identified to suggest a pulmonary embolus. Other findings: Moderate emphysema in the lung apices. Dependent atelectasis with trace bilateral pleural effusions. No pneumothorax. No pulmonary masses. Mild mucus or debris in the trachea. No axillary or mediastinal adenopathy by CT size criteria. Heart size is normal. No pericardial effusion. Three vessel coronary artery disease. The upper abdomen shows granulomatous disease in the liver and spleen but no acute findings. Impression: 1. No pulmonary embolus. 2. Trace pleural effusions and lower lobe mild atelectasis. 3. Emphysema. .
[2016-11-30] MEDS ORDERED: FUROSEMIDE 40 MG/4 ML INJECTION IVP ONE (15:30)
[2016-11-30] MEDS: GUAIFENESIN/D-METHORPHAN 600mg/30mg TABLET PO SCH ×2 (16:26→22:09)
[2016-11-30] MEDS: TAMSULOSIN 0.4 MG CAPSULE PO SCH (22:08)
[2016-12-01] MEDS: LEVOFLOXACIN 750 MG TABLET PO SCH (06:09)
[2016-12-01] MEDS: SALINE FLUSH 10ml SYRINGE IVF PRN ×2 (06:09→20:57)
[2016-12-01] MEDS: OMEPRAZOLE 20 MG CAPSULE PO SCH (06:09)
[2016-12-01] MEDS: ALBUTEROL/IPRATROPIUM 2.5mg-0.5mg/3ml NEB AEROSOL SCH ×4 (07:27→18:34)
[2016-12-01] MEDS: PredniSONE 20 MG TABLET PO SCH (08:25)
[2016-12-01] MEDS: GUAIFENESIN/D-METHORPHAN 600mg/30mg TABLET PO SCH ×2 (08:25→20:55)
[2016-12-01] MEDS: ASPIRIN 325 MG TABLET PO SCH (08:25)
[2016-12-01] MEDS: CLOTRIMAZOLE/BETAMETHASONE CREAM 15gm TOP SCH ×2 (08:26→20:55)
[2016-12-01] MEDS: CLOPIDOGREL 75 MG TABLET PO SCH (08:26)
[2016-12-01] MEDS: FAMOTIDINE 20 MG TABLET PO SCH (08:26)
[2016-12-01] MEDS: ENOXAPARIN 40 MG/0.4 ML INJECTION SQ SCH (08:26)
[2016-12-01] MEDS: FUROSEMIDE 20 MG TABLET PO SCH (08:26)
[2016-12-01] MEDS: SALINE 0.65% NASAL SPRAY 44 ML BOTTLE EA NOSTRIL SCH ×4 (08:27→20:56)
--- NOTE | 2016-12-01 15:05 | Progress Note ---
<Tasneem Starr V - Last Filed: 12/01/16 15:02> Subjective: Castro is seen this afternoon following ambulating with RT for oxygen evaluation. RT reports he required 4 liters of oxygen with ambulating to maintain oxygenation. Overall, he feels that his breathing is improved. He states that he wants to be discharged home as he feels that he is able to take care of his "breathing problems" at home. Discussed working on weaning to room air. Denies having pain or GI concerns. Objective Vital signs: Temperature 97.8 F 12/01/16 11:45 Pulse Rate 102 H 12/01/16 14:57 Respiratory Rate 12 12/01/16 14:33 Blood Pressure 103/57 12/01/16 11:45 Pulse Oximetry 92 12/01/16 14:57 Height/Weight/BMI: Height 1.8 m Weight 94.5 kg Body Mass Index 30.2 - Constitutional Present: no acute distress, well nourished, well developed - Routine HEENT Exam Eye: Present: EOMI ENT: Present: mucous membranes moist, dentition normal - Routine Respiratory Exam Present: CTA bilaterally, diminished air movement (bases). Absent: wheezes - Routine Cardiovascular Exam Present: RRR, S1, S2. Absent: murmur - Routine Abdominal Exam Present: soft, normoactive bowel sounds, non distended. Absent: tenderness - Routine Extremities Exam Present: normal capillary refill - Routine Skin Exam Present: dry, warm - Routine Neurological Exam Present: alert, oriented X3, CN II-XII intact - Routine Lymphatic Exam Lymphatic: Absent: adenopathy - Routine Psychiatric Exam Present: normal affect Results - Labs CBC & Chem 7: 12/01/16 04:56 12/01/16 04:56 Assessment and Plan (1) UTI (urinary tract infection) Current visit: Yes Status: Acute (2) Severe sepsis Current visit: Yes Status: Acute Assessment and Plan: ASSESSMENT Severe Sepsis (lactate 2.3, hypoxia, ANNALISA, hypotension) secondary to UTI Acute hypoxic respiratory failure with oxygen saturation of 85% on room air ANNALISA with creatinine of 1.6, baseline 1.1 CKD - stage 3 Normocytic anemia Wound to right foot (POA) - improving Urethral stenosis, frequent UTI, 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 Today able to wean to 2 liters at rest. Required 3 liters overnight. Required 4 liters with ambulating today. Heart rate increased to 125 with exertion Continues on Prednisone for inflammation. Likely causing Leukocytosis of 15. Continue with gentle diuresis Encourage ambulating for strengthening Follow routine labs Patient hopeful for discharge in the near future . Sepsis Assessment - Evaluation Sepsis screening result: No Definite Risk Hospital Course Summary Disclaimer: The visit summary below is not to be considered part of the above Progress Note. 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 Severe sepsis secondary to UTI -Linezolid was given in the Ed. Will start Levaquin (reaction to cipro is nausea/vomiting) -multiple allergies reviewed: PCN causes an itchy rash and facial swelling -Organ dysfunction: ANNALISA, hypoxia, hypotension -IVF: received 1L fluid bolus in ED; will start bolus of 250 ml/hr -if repeat lactate is 4 or greater (indicating shock) we will give the full fluid bolus of 2900 mL -if repeat lactate is 4 or greater we will reassess him within 6 hours and trend lactate levels -Called [facility] in [place]: BUN/creatinine was 28/1.13 in July and 25/ 1.17 in June. -Place Hale due to self-catheterization history and to monitor I/Os -Supplemental oxygen; DuoNeb PRN; incentive spirometry. 50 pack year smoking hx and underlying COPD. -Consider PE workup if respiratory status doesn't improve. Venous doppler of right leg was negative for DVT. -SIRS criteria = fever, leukocytosis, tachycardia, tachypnea -SOFA score = 2 (1 point for MAP <70 and 1 point for Cr 1.6) Advanced directives -lists all 3 children as DPOA's -Reported DNR in ED but pt reports that he wants resuscitation (just doesn't want to be kept on a ventilator) - will need to clarify. -Does have a living will -[facility] does not have a DNR on file; code status has not been listed Lovenox for VTE prophylaxis. 11/26/16 Patient is doing well although low-grade tachycardia persists with low normal blood pressures. Additional IV fluids to be given as oral intake has been limited. Recurrent fever overnight, no culture data at present to dictate alternate therapy and procalcitonin improved and clinically improved. Continue Levaquin at 48 hr interval. Stable to transfer out of ICU PT/OT consults Hypoxia has resolved, and renal function/hemoglobin relatively stable. Reassess chest x-ray in a.m. 11/27/16 Again requiring low-flow oxygen intermittently and patient reports wheezing earlier today. Received IV fluids yesterday for low normal blood pressures. Chest x-ray suggests minor volume overload today, resume usual oral Lasix dose. Titrate oxygen as status permits. Increase activity. Leukocytosis has resolved, clinically improved. Continue Levaquin adjusted for renal function. Bladder training initiated-patient self catheterizes at home, resume Flomax. 11/28/16 Did well with ambulatory oximetry maintaining oxygen saturations at 90% or greater. Will assess overnight oximetry tonight. Weight is trending down, though he is still about [address] Felipe has already ordered an additional dose of Lasix. Renal function is at baseline with BUN of 24 and creatinine of 1.0. Continue Levaquin for UTI. Blood pressure has stabilized. Continue bladder training, anticipate discontinuation of Hale tomorrow. 11/29/16 Arranging O2 for home - definitely needs at night, will low O2 sats today will reassess for O2 at rest/activities. Recheck CXR to due to O2 needs. Change Levaquin to 750mg po daily - will need another 5 days for coverage. No nausea or vomiting noted. Encourage continued ambulation and activities to help restore strength. CM arranged for Home Health for PT/OT. Hale removed, will need strait caths as at home. Evaluated for home O2 needs - 2L at rest and 6L with activities (interesting as he did not qualify for home O2 on the ). Will start prednisone 60mg daily and give additional Lasix. 11/30/16 Continues to require 4 liters by nasal canula. Baseline oxygen 2 liters at night only. Add Mucinex DM and acapella to help decrease cough. Will obtain CT to rule out PE given continued hypoxia. Results of CT PE protocol: No pulmonary embolus. Trace pleural effusions and lower lobe mild atelectasis. Emphysema. ECHO revels mild diastolic dysfunction. EF 55-60%. Continue with Levaquin to 750mg po daily - end course on 12/05. Encourage continued ambulation for strengthening. PHIL arranged for Home Health for PT/OT. 12/01/16 Plan Continue to work on weaning down oxygen. Today able to wean to 2 liters at rest. Required 3 liters overnight. Required 4 liters with ambulating today. Heart rate increased to 125 with exertion Continues on Prednisone for inflammation. Likely causing Leukocytosis of 15. Continue with gentle diuresis Encourage ambulating for strengthening Follow routine labs Patient hopeful for discharge in the near future <Deep Rodriguez - Last Filed: 12/01/16 18:08> Objective Vital signs: Temperature 97.6 F 12/01/16 15:35 Pulse Rate 101 H 12/01/16 15:35 Respiratory Rate 22 12/01/16 15:35 Blood Pressure 110/63 12/01/16 15:35 Pulse Oximetry 93 12/01/16 15:35 Height/Weight/BMI: Height 1.8 m Weight 94.5 kg Body Mass Index 30.2 Results - Labs CBC & Chem 7: 12/01/16 04:56 12/01/16 04:56 Assessment and Plan (1) Severe sepsis Current visit: Yes Status: Acute (2) UTI (urinary tract infection) Current visit: Yes Status: Acute Assessment and Plan: ASSESSMENT Severe Sepsis (lactate 2.3, hypoxia, ANNALISA, hypotension) secondary to UTI Acute hypoxic respiratory failure with oxygen saturation of 85% on room air ANNALISA with creatinine of 1.6, baseline 1.1 CKD - stage 3 Normocytic anemia Wound to right foot (POA) - improving Urethral stenosis, frequent UTI, 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 Chart reviewed. Case discussed with CM and my CARTOGRAPHY TECHNICIAN. Care plan developed with my supervision; agree with above. Doing okay today. Breathing feels like it is improving. Notes less cough. With ambulation, needed 4L to maintain saturations - down from 6 on Tuesday. Eating well. No chest pain. Lungs: decreased, no crackles or wheeze. Breaths comfortably on O2 CV: regular AB; soft nt/nd +BS MSE: awake alert appropriate Plan: Will decrease Prednisone to 40mg. Continue Levaquin. Encourage continued ambulation and activities. Likely discharge tomorrow. Hospital Course Summary Disclaimer: The visit summary below is not to be considered part of the above Progress Note.
[2016-12-01] MEDS: TAMSULOSIN 0.4 MG CAPSULE PO SCH (20:55)
[2016-12-01] MEDS: ZOLPIDEM 5 MG TABLET PO PRN (22:43)
[2016-12-02] MEDS: OMEPRAZOLE 20 MG CAPSULE PO SCH (06:09)
[2016-12-02] MEDS: LEVOFLOXACIN 750 MG TABLET PO SCH (06:09)
[2016-12-02] MEDS: ALBUTEROL/IPRATROPIUM 2.5mg-0.5mg/3ml NEB AEROSOL SCH ×2 (06:27→10:07)
[2016-12-02] MEDS ORDERED: PredniSONE 20 MG TABLET PO SCH (08:00)
[2016-12-02] MEDS: ASPIRIN 325 MG TABLET PO SCH (08:22)
[2016-12-02] MEDS: CLOPIDOGREL 75 MG TABLET PO SCH (08:23)
[2016-12-02] MEDS: GUAIFENESIN/D-METHORPHAN 600mg/30mg TABLET PO SCH (08:23)
[2016-12-02] MEDS: ENOXAPARIN 40 MG/0.4 ML INJECTION SQ SCH (08:24)
[2016-12-02] MEDS: FAMOTIDINE 20 MG TABLET PO SCH (08:24)
[2016-12-02] MEDS: CLOTRIMAZOLE/BETAMETHASONE CREAM 15gm TOP SCH (08:25)
[2016-12-02] MEDS: FUROSEMIDE 20 MG TABLET PO SCH (10:05)
[2016-12-02] MEDS: SALINE 0.65% NASAL SPRAY 44 ML BOTTLE EA NOSTRIL SCH ×3 (10:06→17:20)
--- NOTE | 2016-12-02 13:49 | Progress Note ---
Subjective: F/U: Sepsis, respiratory failure. Doing well today. Breathing feels well-less SOA and cough. No pain with breathing. No f/c. Eating well. No ab pain. Stools stable. No chest pain. Feels ready to go home. Objective Vital signs: Temperature 97.9 F 12/02/16 11:25 Pulse Rate 84 12/02/16 11:25 Respiratory Rate 20 12/02/16 11:25 Blood Pressure 114/56 12/02/16 11:25 Pulse Oximetry 93 12/02/16 11:25 Height/Weight/BMI: Height 1.8 m Weight 92.6 kg Body Mass Index 30.2 - Constitutional Present: no acute distress, well nourished, well developed, cooperative - Routine HEENT Exam Head: Present: normocephalic, atraumatic, cushingoid faces Eye: Present: EOMI ENT: Present: mucous membranes moist - Routine Respiratory Exam Present: decreased breath sounds. Absent: respiratory distress, rhonchi, wheezes, crackles - Routine Cardiovascular Exam Present: RRR, no murmur - Routine Abdominal Exam Present: soft, normoactive bowel sounds, non distended, non tender - Routine Extremities Exam Present: cyanosis, clubbing, edema (Trace edema) - Routine Musculoskeletal Exam Musculoskeletal: Present: no clubbing or cyanosis, normal strength - Routine Skin Exam Present: intact, dry, warm - Routine Neurological Exam Present: alert, oriented X3, CN II-XII intact, moving all extremities, vision grossly intact, hearing grossly intact. Absent: motor deficit - Routine Psychiatric Exam Present: normal affect, normal thought process, cooperative, good insight, good judgment Results - Labs CBC & Chem 7: 12/02/16 04:54 12/02/16 04:54 Assessment and Plan (1) Severe sepsis Current visit: Yes Status: Acute (2) UTI (urinary tract infection) Current visit: Yes Status: Acute DVT Prophylaxis: SCD's Resuscitation Status: Full Code Assessment and Plan: ASSESSMENT Severe Sepsis (lactate 2.3, hypoxia, ANNALISA, hypotension) secondary to UTI Acute hypoxic respiratory failure with oxygen saturation of 85% on room air ANNALISA with creatinine of 1.6, baseline 1.1 CKD - stage 3 Normocytic anemia Wound to right foot (POA) - improving Urethral stenosis, frequent UTI, straight catheterizes BID Hx of malignant neoplasm of prostate 2004 - radiation CAD (coronary artery disease) + History of [place] COPD (chronic obstructive pulmonary disease) Dyslipidemia HTN (hypertension) Macular degeneration Plan Medically improved. May discharge to home. Continue Levaquin 750mg daily for 3 more days. Mucinex DM BID for 1 week, then as needed for cough/congestion. Continue Acapella and IS for 1 week. Will need O2: 2L at rest and when sleeping, 4L with ambulation. Arrangements made through [facility]. F/U with Dr Andrews in 1 week. See orders for details. Time spent with patient care and discharge greater than 30 minutes. - Time spent with patient discharge greater than 30 minutes Sepsis Assessment - Evaluation Sepsis screening result: No Definite Risk Hospital Course Summary Disclaimer: The visit summary below is not to be considered part of the above Progress Note. Hospital Course: Date of Admission: 11/25/16 ASSESSMENT Severe Sepsis (lactate 2.3, hypoxia, ANNALISA, hypotension) secondary to UTI Acute hypoxic respiratory failure with oxygen saturation of 85% on room air ANNALISA with creatinine of 1.6, baseline 1.1 Normocytic anemia Wound to right foot (POA) - improving Urethral stenosis, frequent UTI, straight catheterizes BID Hx of malignant neoplasm of prostate 2004 - radiation CAD (coronary artery disease) + History of [place] COPD (chronic obstructive pulmonary disease) Dyslipidemia HTN (hypertension) Macular degeneration PLAN Admit, inpatient status, to CCU under the hospitalist service. Severe sepsis secondary to UTI -Linezolid was given in the Ed. Will start Levaquin (reaction to cipro is nausea/vomiting) -multiple allergies reviewed: PCN causes an itchy rash and facial swelling -Organ dysfunction: ANNALISA, hypoxia, hypotension -IVF: received 1L fluid bolus in ED; will start bolus of 250 ml/hr -if repeat lactate is 4 or greater (indicating shock) we will give the full fluid bolus of 2900 mL -if repeat lactate is 4 or greater we will reassess him within 6 hours and trend lactate levels -Called [facility] in [place]: BUN/creatinine was 28/1.13 in July and 25/ 1.17 in June. -Place [facility] due to self-catheterization history and to monitor I/Os -Supplemental oxygen; DuoNeb PRN; incentive spirometry. 50 pack year smoking hx and underlying COPD. -Consider PE workup if respiratory status doesn't improve. Venous doppler of right leg was negative for DVT. -SIRS criteria = fever, leukocytosis, tachycardia, tachypnea -SOFA score = 2 (1 point for MAP <70 and 1 point for Cr 1.6) Advanced directives -lists all 3 children as DPOA's -Reported DNR in ED but pt reports that he wants resuscitation (just doesn't want to be kept on a ventilator) - will need to clarify. -Does have a living will -[facility] does not have a DNR on file; code status has not been listed Lovenox for VTE prophylaxis. 11/26/16 Patient is doing well although low-grade tachycardia persists with low normal blood pressures. Additional IV fluids to be given as oral intake has been limited. Recurrent fever overnight, no culture data at present to dictate alternate therapy and procalcitonin improved and clinically improved. Continue Levaquin at 48 hr interval. Stable to transfer out of ICU PT/OT consults Hypoxia has resolved, and renal function/hemoglobin relatively stable. Reassess chest x-ray in a.m. 11/27/16 Again requiring low-flow oxygen intermittently and patient reports wheezing earlier today. Received IV fluids yesterday for low normal blood pressures. Chest x-ray suggests minor volume overload today, resume usual oral Lasix dose. Titrate oxygen as status permits. Increase activity. Leukocytosis has resolved, clinically improved. Continue Levaquin adjusted for renal function. Bladder training initiated-patient self catheterizes at home, resume Flomax. 11/28/16 Did well with ambulatory oximetry maintaining oxygen saturations at 90% or greater. Will assess overnight oximetry tonight. Weight is trending down, though he is still about [address] Felipe has already ordered an additional dose of Lasix. Renal function is at baseline with BUN of 24 and creatinine of 1.0. Continue Levaquin for UTI. Blood pressure has stabilized. Continue bladder training, anticipate discontinuation of Hale tomorrow. 11/29/16 Arranging O2 for home - definitely needs at night, will low O2 sats today will reassess for O2 at rest/activities. Recheck CXR to due to O2 needs. Change Levaquin to 750mg po daily - will need another 5 days for coverage. No nausea or vomiting noted. Encourage continued ambulation and activities to help restore strength. arranged for Home Health for PT/OT. Hale removed, will need strait caths as at home. Evaluated for home O2 needs - 2L at rest and 6L with activities (interesting as he did not qualify for home O2 on the ). Will start prednisone 60mg daily and give additional Lasix. 11/30/16 Continues to require 4 liters by nasal canula. Baseline oxygen 2 liters at night only. Add Mucinex DM and acapella to help decrease cough. Will obtain CT to rule out PE given continued hypoxia. Results of CT PE protocol: No pulmonary embolus. Trace pleural effusions and lower lobe mild atelectasis. Emphysema. ECHO revels mild diastolic dysfunction. EF 55-60%. Continue with Levaquin to 750mg po daily - end course on 12/05. Encourage continued ambulation for strengthening. CM arranged for Home Health for PT/OT. 12/01/16 Plan Continue to work on weaning down oxygen. Today able to wean to 2 liters at rest. Required 3 liters overnight. Required 4 liters with ambulating today. Heart rate increased to 125 with exertion Continues on Prednisone for inflammation. Likely causing Leukocytosis of 15. Continue with gentle diuresis Encourage ambulating for strengthening Follow routine labs Patient hopeful for discharge in the near future 12/02/16 Medically improved. May discharge to home. Continue Levaquin 750mg daily for 3 more days. Mucinex DM BID for 1 week, then as needed for cough/congestion. Continue Acapella and IS for 1 week. Will need O2: 2L at rest and when sleeping, 4L with ambulation. Arrangements made through [facility]. F/U with Dr Andrews in 1 week. See orders for details.
--- NOTE | 2016-12-02 14:00 | Discharge Summary ---
Discharge Information Date of admission: 11/25/16 09:09 Anticipated date of discharge: 12/02/16 Attending Physician: Deep Rodriguez MD Primary care physician: Johnathan Andrews MD - Discharge Diagnosis (1) Severe sepsis Status: Acute (2) UTI (urinary tract infection) Status: Acute Discharge Diagnosis: Discharge diagnosis Severe Sepsis (lactate 2.3, hypoxia, ANNALISA, hypotension) secondary to UTI Associated conditions and complications UTI - no organism isolated Acute hypoxic respiratory failure with oxygen saturation of 85% on room air Patient did meet qualification for home O2 use prior to discharge. Nocturnal hypoxia requiring oxygen. 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 CARDIAC CHAMBERS. All cardiac chamber measurements are normal. Aortic root diameter is normal. RV size and contractility appear normal. 2. LV FUNCTION. Wall thickness is normal per my measurement. LV wall thickness is borderline increased at 11-12 mm suggestive of borderline LVH. I don't believe the measurement of the posterior wall is accurate. Wall motion analysis is normal. Systolic function is normal. Ejection fraction is normal. EF is estimated at 55-60%. 3. VALVES. Aortic valve is trileaflet, exhibits sclerotic changes and calcification present. Valve opening appears to be mildly restricted. Mitral valve exhibits annular calcification posteriorly. Valve excursion is normal. Tricuspid valve structure and motion appear normal, normal valve excursion. 4. DOPPLER. Doppler shows trace regurgitation involving mitral and tricuspid valves. Aortic stenosis study shows a peak flow velocity of 1.7 m/sec with peak and mean pressure gradient measured at 12 and 7 mmHg. Aortic valve area by continuity equation is 1.67 cm2 based on LVOT diameter of 1.7 cm. Peak flow velocity at the LVOT level is 1.1 m/sec. 5.No evidence of pericardial effusion, intracardiac masses or demonstrable shunts. Central venous pressure is normal. Systolic PA pressure of 36 mmHg is borderline elevated. IMPRESSION 1. Borderline LVH. 2. Normal LV systolic function, EF of 55-60%. 3. Mild diastolic dysfunction. 4. Dysrhythmia is present (PVCs). 5. Calcific aortic valve with mild stenosis. 6. Mitral annular calcification. 7. Normal central venous pressure. 8. Systolic PA pressure estimated at 36 mmHg which is slightly elevated - 35 mmHg being upper normal range. - Laboratory Labs: Admit Lab 11/25/16 07:05 WBC 14.2 H Hgb 12.2 L Hct 37.9 L MCV 86.3 Plt Count 242 Neutrophils % (Manual) 98.0 H Band Neutrophils % 1.0 Admit Lab 11/25/16 07:05 Sodium 141 Potassium 4.1 Chloride 106 Carbon Dioxide 25 BUN 36.0 H Creatinine 1.6 H GFR Calculation 41 Glucose 106 Calculated Osmolality 279 Magnesium 1.8 Total Bilirubin 0.70 AST 28 ALT 27 Troponin I 0.059 B-Natriuretic Peptide 2690 H Plasma Lactate 2.3 H 12/02/16 04:54 12/02/16 04:54 - Radiology Radiology: Date of Exam: 11/30/16 Type of Exam: CT angio pulm emboli Findings: Pulmonary arteries: Exam is diagnostic to the subsegmental pulmonary arterial level. No filling defects identified to suggest a pulmonary embolus. Other findings: Moderate emphysema in the lung apices. Dependent atelectasis with trace bilateral pleural effusions. No pneumothorax. No pulmonary masses. Mild mucus or debris in the trachea. No axillary or mediastinal adenopathy by CT size criteria. Heart size is normal. No pericardial effusion. Three vessel coronary artery disease. The upper abdomen shows granulomatous disease in the liver and spleen but no acute findings. Impression: 1. No pulmonary embolus. 2. Trace pleural effusions and lower lobe mild atelectasis. 3. Emphysema. History of Present Illness HPI: Castro Joel (Bob) is an 89 year old male who started feeling weak on . He was still able to do his daily activities and drive his tractor, but later his weakness became worse and that evening he started to have chills and rigors and needed to cover up with a heavy blanket. He didn't check his temperature. He wasn't sweating. He felt short of breath. No chest pain or pressure. He felt a little dizzy and lightheaded. He tends to get allergies this time of year, but they haven't been too bad yet. He denies cough or congestion/drainage. His voice is hoarse but he denies pain or dysphagia. No paresthesias, no mental status changes. He saw Dr. Andrews on 11/23/16 for bleeding and redness in between his right 4th and 5th toes, and Dr. Andrews Rx Bactrim DS 1 PO BID x [address] Andrews also Rx Lasix 20 mg BID and KCl 10 mEq BID for increased b/l lower extremity edema. Doyle states he started Bactrim on 11/24/16 but has had some nausea since then. He also reports urinary frequency. He occasionally has dysuria but none recently. He's prone to UTIs ( straight caths BID but didn't get any urine output last night). No abdominal pain, constipation, or diarrhea. His appetite hasn't been as hearty since he started his new medications. When he woke up in the morning of 11/25/16, he tried to get out of bed but his legs wouldn't hold him up. He called 911 and was transported to [facility] ED for evaluation. There, initial vitals were stable but he soon desaturated to 85% on room air. He was tachypneic and tachycardic and blood pressures were low to low-normal (at one point MAP was 58 mm Hg). He received a 1L fluid bolus. Labs showed an elevated lactate of 2.3, elevated procalcitonin of 3.3, leukocytosis with WBC of 14.2. Renal function was compromised with BUN of 36 and creatinine of 1.6 (baseline 1.1). UA showed UTI. He has multiple allergies and was given linezolid in the ED. Blood cultures were drawn and sent prior to antibiotics. He was subsequently admitted to the CCU under the hospitalist service for severe sepsis secondary to UTI, acute hypoxia, ANNALISA. LOS is expected to exceed 2 overnights. For complete details of the H&P refer to that document. Objective Vital signs: Temperature 97.9 F 12/02/16 11:25 Pulse Rate 84 12/02/16 11:25 Respiratory Rate 20 12/02/16 11:25 Blood Pressure 114/56 12/02/16 11:25 Pulse Oximetry 93 12/02/16 11:25 Height/Weight/BMI: Height 1.8 m Weight 92.6 kg Body Mass Index 30.2 Hospital Course This is a general summary of the patient's hospital course. For more details refer to the complete medical record. 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 Severe sepsis secondary to UTI -Linezolid was given in the Ed. Will start Levaquin (reaction to cipro is nausea/vomiting) -multiple allergies reviewed: PCN causes an itchy rash and facial swelling -Organ dysfunction: ANNALISA, hypoxia, hypotension -IVF: received 1L fluid bolus in ED; will start bolus of 250 ml/hr -if repeat lactate is 4 or greater (indicating shock) we will give the full fluid bolus of 2900 mL -if repeat lactate is 4 or greater we will reassess him within 6 hours and trend lactate levels -Called [facility] in [place]: BUN/creatinine was 28/1.13 in July and 25/ 1.17 in June. -Place Hale due to self-catheterization history and to monitor I/Os -Supplemental oxygen; DuoNeb PRN; incentive spirometry. 50 pack year smoking hx and underlying COPD. -Consider PE workup if respiratory status doesn't improve. Venous doppler of right leg was negative for DVT. -SIRS criteria = fever, leukocytosis, tachycardia, tachypnea -SOFA score = 2 (1 point for MAP <70 and 1 point for Cr 1.6) Advanced directives -lists all 3 children as DPOA's -Reported DNR in ED but pt reports that he wants resuscitation (just doesn't want to be kept on a ventilator) - will need to clarify. -Does have a living will -[facility] does not have a DNR on file; code status has not been listed Lovenox for VTE prophylaxis. 11/26/16 Patient is doing well although low-grade tachycardia persists with low normal blood pressures. Additional IV fluids to be given as oral intake has been limited. Recurrent fever overnight, no culture data at present to dictate alternate therapy and procalcitonin improved and clinically improved. Continue Levaquin at 48 hr interval. Stable to transfer out of ICU PT/OT consults Hypoxia has resolved, and renal function/hemoglobin relatively stable. Reassess chest x-ray in a.m. 11/27/16 Again requiring low-flow oxygen intermittently and patient reports wheezing earlier today. Received IV fluids yesterday for low normal blood pressures. Chest x-ray suggests minor volume overload today, resume usual oral Lasix dose. Titrate oxygen as status permits. Increase activity. Leukocytosis has resolved, clinically improved. Continue Levaquin adjusted for renal function. Bladder training initiated-patient self catheterizes at home, resume Flomax. 11/28/16 Did well with ambulatory oximetry maintaining oxygen saturations at 90% or greater. Will assess overnight oximetry tonight. Weight is trending down, though he is still about [address] Felipe has already ordered an additional dose of Lasix. Renal function is at baseline with BUN of 24 and creatinine of 1.0. Continue Levaquin for UTI. Blood pressure has stabilized. Continue bladder training, anticipate discontinuation of Hale tomorrow. 11/29/16 Arranging O2 for home - definitely needs at night, will low O2 sats today will reassess for O2 at rest/activities. Recheck CXR to due to O2 needs. Change Levaquin to 750mg po daily - will need another 5 days for coverage. No nausea or vomiting noted. Encourage continued ambulation and activities to help restore strength. CM arranged for Home Health for PT/OT. Hale removed, will need strait caths as at home. Evaluated for home O2 needs - 2L at rest and 6L with activities (interesting as he did not qualify for home O2 on the ). Will start prednisone 60mg daily and give additional Lasix. 11/30/16 Continues to require 4 liters by nasal canula. Baseline oxygen 2 liters at night only. Add Mucinex DM and acapella to help decrease cough. Will obtain CT to rule out PE given continued hypoxia. Results of CT PE protocol: No pulmonary embolus. Trace pleural effusions and lower lobe mild atelectasis. Emphysema. ECHO revels mild diastolic dysfunction. EF 55-60%. Continue with Levaquin to 750mg po daily - end course on 12/05. Encourage continued ambulation for strengthening. CM arranged for Home Health for PT/OT. 12/01/16 Continue to work on weaning down oxygen. Today able to wean to 2 liters at rest. Required 3 liters overnight. Required 4 liters with ambulating today. Heart rate increased to 125 with exertion Continues on Prednisone for inflammation. Likely causing Leukocytosis of 15. Continue with gentle diuresis Encourage ambulating for strengthening Follow routine labs Patient hopeful for discharge in the near future 12/02/16 Medically improved. May discharge to home. Continue Levaquin 750mg daily for 3 more days. Mucinex DM BID for 1 week, then as needed for cough/congestion. Continue Acapella and IS for 1 week. Will need O2: 2L at rest and when sleeping, 4L with ambulation. Arrangements made through [facility]. F/U with Dr Andrews in 1 week. See orders for details. Time spent with patient: discharge greater than 30 minutes DVT Prophylaxis: SCD's Discharge Plan - Med Rec/Dispo Referrals/Follow Up: Johnathan Andrews MD [Family Provider] - 1 Week (Hospital follow up. ) Marcelle Instructions: Sepsis (GEN) Additional Instructions: Use acapella 4 times a day for 1 week, then as needed for congestion. Use incentive spirometry 4 times a day for 1 week, then as needed for shortness of air. Use Mucinex DM twice a day for 1 week, then as needed for cough/congestion. Levaquin helps fight infection - use 1 tablet once a day starting Tuesday. Prednisone helps decrease lung inflammation. Use 1 tablet one a day for 5 days, starting Tuesday12/03/16. Oxygen use: 2L when at rest and when sleeping. Use 4L when walking and active. Prescriptions: New Guaifenesin/Dm [Mucinex Dm] 1 tab PO BID #14 tab.er.12h Levofloxacin [Levaquin] 750 mg PO 0700 #3 tab PredniSONE [Deltasone] 20 mg PO WB #5 tab Zolpidem [Ambien] 5 mg PO HS PRN tablet PRN Reason: Insomnia Sodium Chloride [[place]] 1 spray EA NOSTRIL QID spray Continue Aspirin 325 mg PO DAILY #0 Tamsulosin HCl 0.4 mg PO HS 30 Days #0 cap Nitroglycerin 0.4 mg SL PRN #0 Clopidogrel Bisulfate [Plavix] 75 mg PO DAILY #0 Omeprazole 20 mg PO ACB #0 cap Famotidine 1 tab PO DAILY #0 tab Furosemide [Lasix] 20 mg PO DAILY potassium chloride ER 10 mEq tablet,extended release 10 meq PO BID #60 tab clotrimazole-betamethasone 1 %-0.05 % topical cream 1 applicatio TOP BID #15 g Discontinued Bactrim DS (sulfamethoxazole 800 mg-trimethoprim 160 mg) tablet 1 tab PO BID #14 tab Discharge Instructions/Outpatient Orders: Final Provider Discharge Instructions Location: Determined By Patient - Disposition [facility] - Attestation Attestation Narrative: 12/02/16 14:17 I have independently interviewed and examined pt prior to discharge. See my progress note from today for details. Medically stable for discharge to home.
[2016-12-02 15:54] VITALS: BP 125/66; PULSE 90; RESP 16; TEMP 98.1; O2SAT 95
== END 2016-12-02 17:12 | disposition home health service (06) | DRG 871 ==
LOC: ED 06:05 → CCU 08:54 → SRG 09:01 → CCU 09:09 → SRG 09:25 → CCU 09:25 → MED 11-26 16:35 → SRG 11-26 16:36 → UNDODISIN 12-02 17:12
PROVIDERS: ADMIT Internal Medicine; ATTEND Hospitalist